=== PATIENT | male | born 1945 | race Caucasian/White ===

== ENCOUNTER 2018-02-17 21:20 | Inpatient (IN) ==
[2018-02-17] MEDS ORDERED: Nitroglycerin 1 INCH/GM PACKET TP ONE (21:28)
--- NOTE | 2018-02-17 22:28 | Emergency Department Note ---
Disposition Clinical Impression: NSTEMI (non-ST elevated myocardial infarction) Atrial fibrillation Qualifiers: Atrial fibrillation type: chronic Qualified Code(s): I48.2 - Chronic atrial fibrillation Hypertension Qualifiers: Hypertension type: essential hypertension Qualified Code(s): I10 - Essential (primary) hypertension Disposition: Admitted As Inpatient Condition: Fair Time of Disposition: 23:02 General Adult HPI - General Chief complaint: ED General Medical Stated complaint: high BP/elev trop Time Seen by Provider: 02/17/18 21:27 Source: patient, EMS Mode of arrival: EMS Limitations: no limitations Nursing Notes Reviewed: Yes Vital Signs Reviewed: Yes - History of Present Illness HPI Narrative: 72-year-old male presenting to the emergency department via EMS from a transfer from the [facility] for elevated troponin. Patient originally just went to the urgent care as he had high blood pressure his readings he said at home were greater than 180 on the systolic but unsure diastolic. When he went there they got basic labs he did note to have high blood pressure at that time is was 187/110. They said that he ended up having a troponin that was elevated to 0.4- 3 so they said to transfer him here. Patient is not having any chest pain at this time is having no shortness of breath. He did have a stent placed approximately 1992. Has had no problems since then has been taking his medications regularly. He did not get a full dose aspirin prior to coming here. Patient currently has no pain at this time. He is on daily headaches, blurry vision, neck pain, back pain, fevers, chills, nausea, vomiting, chest pain, shortness of breath, abdominal pain, change in bowel movement, pain with urination, pain or tingling in any arms or legs or generalized weakness. Pain Scale: 0 - Related Data Home Medications Medication Instructions Recorded Confirmed RX: Acarbose [Precose] 25 mg PO TIDWM 08/08/15 09/27/15 RX: Albuterol Sulfate [Albuterol 2 puff IH QID PRN 08/08/15 09/27/15 Inhaler] RX: Benztropine [Cogentin] 1 mg PO BID 08/08/15 02/17/18 RX: Bisacodyl [Dulcolax] mg PO DAILY PRN 08/08/15 09/27/15 RX: Cetirizine HCl [Zyrtec] 10 mg PO DAILY 08/08/15 09/27/15 RX: Formoterol Fumarate [Foradil] 12 mcg IH BIDR 08/08/15 09/27/15 RX: Loxapine Succinate [Loxapine] 35 mg PO QAM 08/08/15 02/17/18 RX: Loxapine Succinate [Loxapine] 65 mg PO QPM 08/08/15 02/17/18 RX: Metoprolol [Lopressor] 100 mg PO BID 08/08/15 02/17/18 RX: Mometasone Furoate [Asmanex] 1 puff IH BID 08/08/15 09/27/15 RX: NIFEdipine [Nifedipine ER] 60 mg PO DAILY 08/08/15 09/27/15 RX: Omeprazole [PriLOSEC] 20 mg PO DAILY 08/08/15 02/17/18 RX: Paliperidone [Paliperidone ER] 9 mg PO DAILY 08/08/15 02/17/18 RX: Potassium Chloride [K-Tab ER] 10 meq PO DAILY 08/08/15 02/17/18 RX: Simvastatin [Zocor] 40 mg PO HS 08/08/15 02/17/18 RX: Valsartan [Diovan] 80 mg PO DAILY 08/08/15 09/27/15 RX: glipiZIDE [Glipizide] 2.5 mg PO BID 08/08/15 02/17/18 RX: Pentoxifylline [TRENtal] 400 mg PO TID 08/12/15 02/17/18 RX: Saxagliptin HCl [Onglyza] 2.5 mg PO DAILY 08/12/15 02/17/18 RX: Urea [Remeven] 1 appl TP DAILY 08/12/15 09/27/15 RX: Benzonatate [Tessalon] 100 mg PO QID 09/27/15 02/17/18 RX: Warfarin [Coumadin] 1 mg PO SUTUWETHFRSA 09/27/15 09/27/15 RX: Warfarin [Coumadin] 1.5 mg PO MOFR 09/27/15 09/27/15 Multivitamin [Multivitamins] 1 each PO DAILY 02/17/18 02/17/18 Allergies Allergy/AdvReac Type Severity Reaction Status Date / Time ROB Inhibitors Allergy Unconscious Verified 08/08/15 09:39 chlorpromazine Allergy unknown Verified 08/08/15 09:39 [From Thorazine] Erythromycin Base Allergy Hives Verified 08/08/15 09:39 All systems ED: reviewed and negative except as stated. Review of Systems: As Per HPI Past Medical History - Past Medical History Attestation: Yes The following information was validated with the patient. Source: patient Medical history: Reports: atrial fibrillation, COPD, CVA, diabetes, hyp erlipidemia, hypertension, myocardial infarction Surgical history: Reports: vascular surgery Psychiatric history: Reports: anxiety, depression, schizophrenia - Social History Smoking Status: Never smoker Smokeless Tobacco Status: No Alcohol use: Reports: none Drug use: Reports: none Physical Exam - General Limitations: no limitations General appearance: alert - Head Head exam: atraumatic, normocephalic, normal inspection - Eye Eye exam: Present: normal appearance, PERRL, EOMI - ENT ENT exam: normal exam, normal oropharynx, mucous membranes moist - Neck Neck exam: Present: normal inspection, full ROM, trachea midline - Chest Chest inspection: Present: normal inspection, symmetric chest wall rise - Respiratory Respiratory exam: Present: normal lung sounds bilaterally - Cardiovascular Cardiovascular exam: Present: regular rate, normal rhythm, normal heart sounds - Abdominal Exam Abdominal exam: Present: soft, Non-Tender, normal bowel sounds. Absent: tenderness, distention, guarding, rebound, rigidity - Extremities Exam Extremities exam: Present: normal inspection, full ROM. Absent: tenderness, pedal edema - Back Exam Back exam: Present: normal inspection, full ROM. Absent: tenderness, CVA tenderness (R), CVA tenderness (L) - Neurological Exam Neurological exam: Present: alert, oriented X3 - Skin Skin exam: Present: warm, dry, intact, normal color Course Course Narrative: Patient had labs done at the [facility]. We will repeat a troponin here give him a nitroglycerin patch. Also give him full dose aspirin here as well. EKG will also be done. X-rays will be uploaded into her system. Vital Signs Temperature 98.7 F 02/17/18 21:23 Pulse Rate 117 02/17/18 21:23 Respiratory Rate 18 02/17/18 21:23 Blood Pressure 200/117 02/17/18 21:23 O2 Sat by Pulse Oximetry 100 02/17/18 21:23 Temperature 98.7 F 02/17/18 21:23 Pulse Rate 126 02/17/18 22:48 Respiratory Rate 16 02/17/18 22:48 Blood Pressure 193/126 02/17/18 22:48 O2 Sat by Pulse Oximetry 99 02/17/18 22:48 Oxygen Delivery Oxygen Delivery Room Air Medical Decision Making - MDM Narrative Medical decision making narrative: Labs done at the [facility] came back with a troponin of 0.4-3 potassium 3.3 glucose 114, BUNs 23, creatinine 1.86, hemoglobin 12.2, hematocrit 36.9. All other labs were within normal limits. Chest x-ray had no acute cardiopulmonary findings. Repeat troponin here was 0.25. Patient was given full dose aspirin. He does have history of atrial fibrillation does take metoprolol He does have A. fib currently at this time patient is stable. Patient is okay with being admitted for further evaluation. Patient is still not having any chest pain at this time. I spoke with the hospitalist Dr. Thompson Who agreed to admit the patient at this time per patient is stable. Patient still has elevated high blood pressure at 190/120. Hospital is recommended giving 10 mg IV hydralazine and holding off on a nitro drip. I agree. Patient is admitted in stable condition. - Medical Records Medical records reviewed: Yes I reviewed the patient's medical records. - Lab Data Lab results reviewed: Yes I reviewed the patient's lab results. Lab Results 02/17/18 Range/Units 21:35 Troponin I 0.25 H* (< 0.04) ng/mL - Radiology Data Radiology results reviewed: Yes I reviewed the patient's radiology results. - EKG Data EKG #1 EKG attestation: Yes I reviewed and interpreted this EKG. EKG results narrative: EKG done at 2127 review by myself and the attending shows atrial fibrillation at a rate of 119, QRS 86, QTc 459. His no acute ST changes no acute T-wave changes no other signs of ischemia. No hypertrophy, heart strain, heart block. No WPW/Brugada/HOCM. EKG is unchanged when compared with old one done 08/12/15. Critical Care Time Critical Care Time: Yes Total Critical Care Time: 35 Attestation: Non stemi Attestation Statement - Attestation Attestation: Dr. Burgos note: Patient was seen in conjunction with resident Dr. Santiago Starr; please see his charting for complete documentation. I spent [id number] time with the patient and I agree with the patient's treatment and disposition. tropoin results reviewed; bp improved; no chest pain at presentation to outside facility or to our facility; vitals stable; will admit for trend sx and troponin; acute NON STEMI noted , timing onset uncertain;
[2018-02-17] MEDS ORDERED: Aspirin 81 MG TAB.CHEW PO ONE (22:33)
--- NOTE | 2018-02-17 23:33 | Internal Med History&Physical ---
<Elijah Ackerman - Last Filed: 02/18/18 05:03> Date of Encounter: 02/18/18 Time of Encounter: 01:40 Internal Medicine - H&P: HPI Chief complaint: HTN; Elevated Trop Admitted From: Intrahospital Transfer Plans for Post Hospital Care: Home History of present illness: Mr. Craig is a 72 year old male with PMHx of CAD stents in 1992, a. fib, CVA, HTN, DM, CKD stage III, and schizophrenia admitted from the emergency department for hypertensive emergency. Patient was transfered from the [place] to [facility] ED for evaluation of elevated troponin and HTN. Patient initial complaint was elevated blood pressure in the 180's systolic. Vitals confirmed BP, labs showed elevated torponin to 0.4 and patient was transferred to [facility] for further management. Patient denies CP or dyspnea at this time. According to records, patient follows with cardiology at the [facility]. Seen in October 2017 for further discussion of anticoagulation and patient was recommended to EP physician at that time for evaluation for atrial appendage procedure for prevention of clot formation. No other concerns at that time. Past Med Surg Social Fam HX - Past Medical History Medical history: atrial fibrillation, COPD, CVA, diabetes, hyperlipidemia, hypertension, myocardial infarction Additional medical history: slurred speech from previous CVA Psychiatric history: anxiety, depression, schizophrenia - Past Surgical History Surgical History: vascular surgery - Social History Smoking Status: Never smoker Smokeless Tobacco Status: No Alcohol use: none Drug use: none - Family History Father History Unknown: Yes Internal Medicine - H&P: Meds Acarbose [Precose] 25 mg PO TIDWM 08/08/15 [History] Albuterol Sulfate [Albuterol Inhaler] 2 puff IH QID PRN 08/08/15 [History] Benztropine [Cogentin] 1 mg PO BID 08/08/15 [History] Bisacodyl [Dulcolax] mg PO DAILY PRN 08/08/15 [History] Cetirizine HCl [Zyrtec] 10 mg PO DAILY 08/08/15 [History] Formoterol Fumarate [Foradil] 12 mcg IH BIDR 08/08/15 [History] Loxapine Succinate [Loxapine] 35 mg PO QAM 08/08/15 [History] Loxapine Succinate [Loxapine] 65 mg PO QPM 08/08/15 [History] Metoprolol [Lopressor] 100 mg PO BID 08/08/15 [History] Mometasone Furoate [Asmanex] 1 puff IH BID 08/08/15 [History] NIFEdipine [Nifedipine ER] 60 mg PO DAILY 08/08/15 [History] Omeprazole [PriLOSEC] 20 mg PO DAILY 08/08/15 [History] Paliperidone [Paliperidone ER] 9 mg PO DAILY 08/08/15 [History] Potassium Chloride [K-Tab ER] 10 meq PO DAILY 08/08/15 [History] Simvastatin [Zocor] 40 mg PO HS 08/08/15 [History] Valsartan [Diovan] 80 mg PO DAILY 08/08/15 [History] glipiZIDE [Glipizide] 2.5 mg PO BID 08/08/15 [History] Pentoxifylline [TRENtal] 400 mg PO TID 08/12/15 [History] Saxagliptin HCl [Onglyza] 2.5 mg PO DAILY 08/12/15 [History] Urea [Remeven] 1 appl TP DAILY 08/12/15 [History] Benzonatate [Tessalon] 100 mg PO QID 09/27/15 [History] Warfarin [Coumadin] 1 mg PO SUTUWETHFRSA 09/27/15 [History] Warfarin [Coumadin] 1.5 mg PO MOFR 09/27/15 [History] Multivitamin [Multivitamins] 1 each PO DAILY 02/17/18 [History] Allergy/AdvReac Type Severity Reaction Status Date / Time ROB Inhibitors Allergy Unconscious Verified 08/08/15 09:39 chlorpromazine Allergy unknown Verified 08/08/15 09:39 [From Thorazine] Erythromycin Base Allergy Hives Verified 08/08/15 09:39 All Systems PM: A 10-system review of systems was performed and is negative for pertinent findings except as documented above in the HPI. - Constitutional Constitutional: no fever(s) - EENT Eyes: no blurry vision, no change in vision Ears: no decreased hearing Nose, mouth and throat: as per HPI - Breasts Breasts: as per HPI - Cardiovascular Cardiovascular ROS IM: no chest pain, no diaphoresis, no dyspnea, no dyspnea on exertion, no edema, no lightheadedness, no palpitations - Respiratory Respiratory: cough, no dyspnea, no dyspnea on exertion, no wheezing, no excessive phlegm production - Gastrointestinal Gastrointestinal: no abdominal pain, no nausea - Genitourinary Genitourinary ROS male: no dysuria, no flank pain - Musculoskeletal Musculoskeletal ROS IM: no back pain, no numbness - Integumentary Integumentary IM: as per HPI - Neurological Neurological ROS: headache(s) (resolved at this time), no confusion, no dizziness, no focal weakness, no loss of vision, no memory loss, no weakness - Psychiatric Psychiatric: as per HPI - Endocrine Endocrine IM: as per HPI - Constitutional Vitals: Temp Pulse Resp BP Pulse Ox 98.7 F 123 16 189/109 100 02/17/18 21:23 02/17/18 23:17 02/17/18 23:17 02/17/18 23:17 02/17/18 23:17 General appearance: Present: A&O X 3, pleasant, no acute distress Exam: Patient alert and oriented for exam. Pleasant. Resting in bed comfortably. - Head Head exam: Present: atraumatic, normal inspection, normocephalic - Eye Eye exam: Present: conjunctival injection, EOMI, normal appearance, PERRL - ENT ENT exam: Present: mucous membranes moist, normal exam, normal oropharynx - Neck Neck exam general surgery: Present: full ROM, normal inspection - Cardiovascular Cardiovascular exam: Present: +S1, +S2, tachycardia - GI/Abdominal GI/Abdominal exam: Present: normal bowel sounds, soft. Absent: tenderness - Extremities Exam Extremities exam: Present: normal capillary refill, normal inspection. Absent: calf tenderness, pedal edema, tenderness - Back Exam Back exam: Present: full ROM, normal inspection. Absent: CVA tenderness (L), CVA tenderness (R) - Neurological Exam Neurological exam: Present: alert, CN II-XII intact, oriented X3, reflexes normal, no focal deficits, strengths equal and symetr throughout. Absent: motor sensory deficit, pronater drift, facial droop, speech deficit - Psychiatric Psychiatric exam: Present: normal affect, normal mood - Skin Skin exam: Present: dry, intact, normal color Internal Med - H&P Results - Labs CBC & Chem 7: 02/18/18 03:26 02/18/18 03:26 Labs: Cardiac Enzymes 02/17/18 Range/Units 21:35 Troponin I 0.25 H* (< 0.04) ng/mL - EKG Data -: EKG Interpreted by Myself EKG shows normal: axis, intervals, QRS complexes Rate: tachycardia - EKG Data Prior EKG available for review: yes When compared to previous EKG: there is no significant change - Assessment and plan (1) Hypertensive emergency Current Visit: Yes Status: Acute Assessment and plan: Received 10mg IV hydralazine in the ED BP improved from systolic 190-> 140s Elevated troponin trending downward KOWALSKI earlier this evening, resolved now Plan: - BP improved to 110's systolic will continue to monitor - Trending troponin and kidney function - Resume home medications in the AM (2) Elevated troponin Current Visit: Yes Status: Acute Assessment and plan: Most likely secondary to demand ischemia due to elevated BP Plan: - Echo in the AM - Trend troponins (3) Tachycardia Current Visit: Yes Status: Acute Assessment and plan: Patient on Metoprolol 100mg BID for tachycardia and HTN Hx of a. fib, not on AC due to hx of falls EKG shows sinus tachycardia 130s HR currently in 110's Plan: - 1L NS bolus - Reassess for prn medications - Resume home medications in the AM (4) Acute kidney injury superimposed on chronic kidney disease Current Visit: Yes Status: Acute Assessment and plan: Cr 1.86, unsure of patient baseline Plan: - 1L NS bolus - Reassess with AM labs (5) Paranoid schizophrenia, chronic condition Current Visit: No Status: Chronic Assessment and plan: Continue Home meds in AM (6) DVT prophylaxis Current Visit: No Status: Acute Assessment and plan: heparin 5000 units BID - Time Spent With Patient Total time spent is greater than 50% in coordination of care (as documented) at patient's floor/unit and/or counseling patient: <Kleber Hu - Last Filed: 02/18/18 07:57> Date of Encounter: 02/18/18 Internal Medicine - H&P: HPI History of present illness: Mr. Craig is a 72 year old male All Systems PM: A 10-system review of systems was performed and is negative for pertinent find ings except as documented above in the HPI. - Constitutional Vitals: Temp Pulse Resp BP Pulse Ox 97.7 F 105 20 150/101 97 02/18/18 07:28 02/18/18 07:28 02/18/18 07:28 02/18/18 07:28 02/18/18 03:01 Internal Med - H&P Results - Labs CBC & Chem 7: 02/18/18 03:26 02/18/18 03:26 Labs: Short CBC 02/18/18 Range/Units 03:26 WBC 11.2 H (4.3-11.1) K/mcL Hgb 10.6 L (12.9-16.9) g/dL Hct 31.8 L (37.5-50.1) % Plt Count 287 (140-400) K/mcL Neutrophils # 8.5 (1.6-8.9) K/mcL BMP 02/18/18 03:26 Sodium 139 Potassium 3.2 L Chloride 105 Carbon Dioxide 27 BUN 22 Creatinine 1.66 H Glucose 128 H Calcium 9.1 Cardiac Enzymes 02/17/18 02/18/18 Range/Units 21:35 03:26 Troponin I 0.25 H* 0.19 H* (< 0.04) ng/mL - Time Spent With Patient Total time spent is greater than 50% in coordination of care (as documented) at patient's floor/unit and/or counseling patient: - Attending Attestation I saw and evaluated the patient. I reviewed the residents note, performed my own physical examination and agree with findings and plan as documented in the residents note. Patient seen and examined on 02/18/18. [facility], and troponin. Denies chest pain. Blood pressure improved, troponin trending down. Will also treat for low potassium and monitor. Patient in Afib, rate in low 110-120 range. Will try fluid bolus and reevaluate. Will also obtain echocardiogram in the AM. Patient states he has right hand pain, but exam within normal limits with good strength and ROM. Will try PRN tylenol.
[2018-02-18] MEDS ORDERED: Naloxone 0.4 MG/ML INJ IVP PRN (00:11)
[2018-02-18] MEDS ORDERED: 0.9 % Sodium Chloride 1,000 ML IVC SCH ×2 (00:15→15:00)
[2018-02-18] MEDS ORDERED: Albuterol 2.5 MG/3 ML NEBULIZER IH PRN (00:21)
[2018-02-18] MEDS ORDERED: 0.9 % Sodium Chloride 1,000 ML IVC ONE (02:15)
[2018-02-18 02:17] LABS: VBG Ionized Calcium 1.21 mmol/L (1.15-1.35)
[2018-02-18 02:20] LABS: Magnesium 1.5 mg/dL (1.6-2.6); Phosphorous 2.8 mg/dL (2.7-4.5)
[2018-02-18 04:08] LABS: Basophils % 0.4 %; Eosinophils # 0.1 K/mcL (0.0-0.6); Eosinophils % 0.9 %; Hematocrit 31.8 % (37.5-50.1); Hemoglobin 10.6 g/dL (12.9-16.9); Immature Granulocytes % 0.3 % (0-4); Lymphocytes # 1.6 K/mcL (0.6-4.6); Lymphocytes % 14.5 %; Mean Corpuscular HGB Conc 33.3 g/dL (31.6-35.5); Mean Corpuscular Hemoglobin 30.3 pg (28.0-33.3); Mean Corpuscular Volume 90.9 fL (83.0-100.0); Mean Platelet Volume 10.5 fL (9.4-12.4); Monocytes # 0.9 K/mcL (0.0-1.3); Monocytes % 7.8 %; Neutrophils # 8.5 K/mcL (1.6-8.9); Platelet Count 287 K/mcL (140-400); Red Cell Distribution Width 12.5 % (11.5-14.5); Segmented Neutrophils % 76.1 %
[2018-02-18 04:11] LABS: VBG Ionized Calcium 1.03 mmol/L (1.15-1.35)
[2018-02-18 04:19] LABS: Calcium 9.1 mg/dL (8.6-10.3); Potassium 3.2 mEq/L (3.5-5.1)
[2018-02-18] MEDS: *HR* Heparin 5,000 UNIT/ML VIAL SQ SCH ×2 (05:17→18:01)
[2018-02-18] MEDS ORDERED: Acetaminophen 325 MG TABLET PO PRN (05:19)
[2018-02-18] MEDS: Metoprolol 100 MG TABLET PO SCH ×2 (07:49→19:42)
[2018-02-18] MEDS: *HR* GlipiZIDE 5 MG TABLET PO SCH ×2 (07:49→15:50)
[2018-02-18] MEDS: LOXAPINE PO SCH (08:00)
[2018-02-18] MEDS: Saxagliptin Hcl [Onglyza] 2.5 MG PO SCH (08:00)
[2018-02-18] MEDS: amLODIPine 5 MG TABLET PO SCH (08:47)
--- NOTE | 2018-02-18 09:28 | Internal Med Progress Note ---
Hospitalist Progress Note - Encounter Date of Encounter: 02/18/18 Time of Encounter: 08:00 - Exam Vitals: Temp Pulse Resp BP Pulse Ox 97.7 F 83 18 120/78 98 02/18/18 07:28 02/18/18 09:15 02/18/18 09:15 02/18/18 09:15 02/18/18 09:15 Exam: Gen - Awake, alert, oriented x 3, no acute distress HEENT - NCAT, PERRLA, EOMI, hearing grossly intact, oropharynx benign CV - RRR, normal S1 and S2, no M/R/G, no BLE edema Resp - Normal WOB, CTAB, no W/R/R GI - Soft, NT/ND, no masses, normal bowel sounds, Skin - Warm, dry, no rashes/lesions/ulcers Psych - flat affect - Assessment and Plan (1) Hypertensive urgency Current Visit: Yes Status: Acute Assessment and Plan: Patient comes in with hypertesive urgency and elevated tropionins BP controlled on amlopdine and metoprolol (2) Acute kidney injury superimposed on chronic kidney disease Current Visit: Yes Status: Acute Assessment and Plan: Continue IV fluids. Monitor creatinine (3) HTN (hypertension) Current Visit: Yes Status: Chronic Assessment and Plan: On amlodipine and metoprolol (4) Paranoid schizophrenia, chronic condition Current Visit: No Status: Chronic Assessment and Plan: Continue antipsychotics (5) Atrial fibrillation Current Visit: Yes Status: Chronic Assessment and Plan: Rate controlled. continue metoprolol. Not on anticoagulation due to recurrent falls (6) Elevated troponin Current Visit: Yes Status: Acute Assessment and Plan: Likely secondary to demand ischemia. 2d echo came back WNL. Cardiology recommend outpatient follow up with [employer] DVT Prophylaxis: Heparin sc - Time Spent with Patient Total time spent is greater than 50% in coordination of care (as documented) at patient's floor/unit and/or counseling patient: Internal Medicine: Result - Labs CBC & Chem 7: 02/18/18 03:26 02/18/18 10:18 Labs: Short CBC 02/18/18 Range/Units 03:26 WBC 11.2 H (4.3-11.1) K/mcL Hgb 10.6 L (12.9-16.9) g/dL Hct 31.8 L (37.5-50.1) % Plt Count 287 (140-400) K/mcL Neutrophils # 8.5 (1.6-8.9) K/mcL BMP 02/18/18 03:26 Sodium 139 Potassium 3.2 L Chloride 105 Carbon Dioxide 27 BUN 22 Creatinine 1.66 H Glucose 128 H Calcium 9.1 Cardiac Enzymes 02/17/18 02/18/18 Range/Units 21:35 03:26 Troponin I 0.25 H* 0.19 H* (< 0.04) ng/mL Consult Discharge Plan - Plan [facility]errals: [facility] [Primary Care Provider] - (3) HTN (hypertension) Qualifiers: Hypertension type: essential hypertension Qualified Code(s): I10 - Essential (primary) hypertension (5) Atrial fibrillation Qualifiers: Atrial fibrillation type: chronic Qualified Code(s): I48.2 - Chronic atrial fibrillation
[2018-02-18 10:31] LABS: VBG Ionized Calcium 1.24 mmol/L (1.15-1.35)
[2018-02-18 12:01] LABS: Calcium 9.1 mg/dL (8.6-10.3); Magnesium 2.1 mg/dL (1.6-2.6); Phosphorous 2.4 mg/dL (2.7-4.5); Potassium 4.1 mEq/L (3.5-5.1)
--- NOTE | 2018-02-18 13:02 | Electrocardiograph Report ---
[place] [id number] Test Date: 2018-02-17 Pat Name: Gama Craig Department: [id number] Room: 2N13 Gender: M Manager [address]: : 1945 Requested By: Enrique Thompson Order Number: [id number] Reading MD: Mehdi Jones Measurements Intervals [place] Rate: 119 P: SC: QRS: 82 QRSD: 86 T: 249 QT: 326 QTc: 459 Interpretive Statements Probably sinus tachycardia Artifacts Nonspecific repol abnormality, diffuse leads Electronically Signed On 02-18-2018 13:00:31 EST by Mehdi Jones
[2018-02-18] MEDS: Potassium Chloride Elixir 20 MEQ/15 ML UDC PO SCH ×2 (13:25→13:26)
--- NOTE | 2018-02-18 13:45 | Cardiology Consult Note ---
Addendum entered and electronically signed by Rose Khan DO 02/18/18 15:07: Correction to Addendum: Patient reviewed with Stallion Keeper and not MANAGER FILM. Original Note: <Omega Dawson - Last Filed: 02/18/18 14:07> Date of Encounter: 02/18/18 Time of Encounter: 13:40 Assessment and Plan (1) Elevated troponin Current Visit: Yes Status: Acute 72 y/o male presents from [place] for elevated troponin and hypertensive emergency troponin 0.4>0.25>0.19 in setting of YSABEL EKG irregularly irregular with rate of [address]-elevation or depression, non-specific ST-T wave changes Echo completed today: LVEF 55-60% normal LV chamber size, wall thickness, and systolic function, mild LV diastolic dysfunction, normal RV structure and function, no evidence of pulmonary hypertension patient denies chest pain previous history of NH in 1992 plan: patient had elevated troponin (now trending now) in the setting of profound hypertension, YSABEL. ECG, echo are wnl. Patient has not had chest pain. Would recommend better blood pressure managment at this point. Currently patient is on amlodpine inpatient with BP 120/80. Patient may follow up outpatient with his PCP/Jail Officer for further ischemic workup including stress test if appropriate. (2) YSABEL (acute kidney injury) Current Visit: Yes Status: Acute likely 2nd to hypertension patient on IVF management as per primary (3) Paroxysmal atrial fibrillation Current Visit: Yes Status: Acute controlled continue metoprolol patient is not on anticoagulation due to hx of recurrent falls (4) Hypertensive emergency Current Visit: Yes Status: Resolved resolved unclear if patient is compliant with his medication regimen he is on clonidine which if missed can cause rebound hypertension currently BP controlled with amlodipine. (5) Diabetes mellitus Current Visit: Yes Status: Chronic controlled as per primary Qualifiers: Diabetes mellitus type: type 2 Diabetes mellitus long term care phlebotomist insulin use: with fdc use Diabetes mellitus complication status: with circulatory complication Diabetes mellitus complication detail: with peripheral angiopathy without gangrene Qualified Code(s): E11.51 - Type 2 diabetes mellitus with diabetic peripheral angiopathy without gangrene; Z79.4 - rat exterminator (current) use of insulin Discussion w patient/family: The assessment and plan as outlined above was discussed with the patient and/or family members who expressed understanding and agreement. All questions were ans wered. Thank you for involving us in the care of your patient. Please call with any questions. History of Present Illness Consult date: 02/18/18 Consult reason: elevated troponin Chief complaint: elevated blood pressure History of present illness: Mr. Craig is a 72 year old male with hx of atrial fibrillation, COPD, CVA, diabetes, hyperlipidemia, hypertension, myocardial infarction presents from [facility] after being found to be in hypertensive emergency with elevated troponin of 0.4 as well as YSABEL. Patient is a resident at the [place] facility for the last 5 months for rehabilitation. He states that for the last 5 days. Had elevated blood pressure in the systolics 180s. Thus he went to the urgent care. At this time patient did not have headache, blurry vision shortness of breath, chest pain, abdominal pain, nausea, vomiting, diarrhea, changes in urine color, dysuria. He reports lightheadedness. Patient was transferred from the [place] to [facility]. Patient has a history of NH in 1992 and apparently had a left heart catheterization with PCI. We do not have records for this. Past Med Surg Social Fam HX - Past Medical History Medical history: atrial fibrillation, COPD, CVA, diabetes, hyperlipidemia, hypertension, myocardial infarction Additional medical history: slurred speech from previous CVA Psychiatric history: anxiety, depression, schizophrenia - Past Surgical History Surgical History: vascular surgery - Social History Smoking Status: Never smoker Smokeless Tobacco Status: No Alcohol use: none Drug use: none - Family History Father History Unknown: Yes Medications and Allergies Benzonatate 100 mg PO QID PRN 02/18/18 [History] Benztropine [Cogentin] 1 mg PO BID 02/18/18 [History] Calcium Carbonate 650 mg PO DAILY 02/18/18 [History] Cholecalciferol (Vitamin D3) [Vitamin D3] 1,000 unit PO DAILY 02/18/18 [History] Loxapine Succinate [Loxapine] 10 mg PO QAM 02/18/18 [History] Loxapine Succinate [Loxapine] 15 mg PO HS 02/18/18 [History] Loxapine Succinate [Loxapine] 25 mg PO QAM 02/18/18 [History] Loxapine Succinate [Loxapine] 50 mg PO HS 02/18/18 [History] Metoprolol Tartrate 100 mg PO BID 02/18/18 [History] Multivitamin [One-Daily Multi-Vitamin] 1 tab PO DAILY 02/18/18 [History] Omeprazole [PriLOSEC] 20 mg PO DAILY 02/18/18 [History] Paliperidone [Paliperidone ER] 9 mg PO DAILY 02/18/18 [History] Pentoxifylline 400 mg PO TID 02/18/18 [History] Potassium Chloride [K-Tab ER] 10 meq PO MOWEFR 02/18/18 [History] Potassium Chloride [K-Tab ER] 20 meq PO SUTUTHSA 02/18/18 [History] Saxagliptin HCl [Onglyza] 2.5 mg PO DAILY 02/18/18 [History] Sennosides/Docusate Sodium [Eq Stool Softener-Stim Lax Tab] 2 tab PO BID PRN 02/18/18 [History] Simvastatin 40 mg PO HS 02/18/18 [History] cloNIDine HCl [Clonidine HCl] 0.2 mg PO DAILY 02/18/18 [History] glipiZIDE [Glucotrol] 2.5 mg PO BID 02/18/18 [History] Allergy/AdvReac Type Severity Reaction Status Date / Time ROB Inhibitors Allergy Unconscious Verified 02/18/18 10:48 chlorpromazine Allergy unknown Verified 02/18/18 10:48 [From Thorazine] Erythromycin Base Allergy Hives Verified 02/18/18 10:48 All Systems Review: The remainder of the systems were reviewed and are negative Review of Systems: Constitutional: Denies fever, chills HEENT: Denies headache, trauma, blurry vision, eye discharge, ear pain, ear discharge neck pain, sore throat, rhinorrhea Heart: Denies chest pain palpitations, LE edema. Reports lightheadedness Lungs: Denies shortness of breath cough Abdomen: Denies abdominal pain nausea vomiting diarrhea MSK: Denies back pain, falls, joint pain Kidney: Denies dysuria, hematuria Skin: Denies rash, ulcers Neuro: Denies numbness and tingling Psych: denies axniety, depression Physical Examination Vital Signs, Last 4 Hours Temp Pulse Resp BP Pulse Ox 02/18/18 12:26 87 02/18/18 11:58 97.8 F 80 16 127/81 99 General: Conversant, No Apparent Distress HEENT: Atraumatic, Normocephaly, Mucus Membranes Moist Neck: No JVD, Normal carotid pulses Cardiac: Reg Rate and Rhythm, Normal S1 and S2, No Murmur Lungs: Normal Breath Sounds, No Wheeze, Rales, Rhonchi Neuro: Alert and responsive, No focal deficits noted, Other (Slurred speech, chronic) Abdomen: Soft, Non-Tender Skin: No rashes noted on visualized skin Musculoskeletal: No Chest Wall Tenderness, Other Extremities: No Clubbing, No Cyanosis, No Edema, Normal Pulses Results 02/18/18 03:26 02/18/18 10:18 Lab Results 02/17/18 02/18/18 02/18/18 21:35 01:51 03:26 WBC Hgb Hct Plt Count Sodium Potassium Chloride Carbon Dioxide BUN Creatinine Glucose Calcium Magnesium 1.5 L Troponin I 0.25 H* 0.19 H* 02/18/18 02/18/18 02/18/18 03:26 03:26 10:18 WBC 11.2 H Hgb 10.6 L Hct 31.8 L Plt Count 287 Sodium 139 140 Potassium 3.2 L 4.1 D Chloride 105 106 Carbon Dioxide 27 27 BUN 22 22 Creatinine 1.66 H 1.70 H Glucose 128 H 210 H Calcium 9.1 9.1 Magnesium 2.1 Troponin I Consult Discharge Plan - Plan Referrals: [place],PCP [Primary Care Provider] - <Rose Khan - Last Filed: 02/18/18 15:05> Date of Encounter: 02/18/18 - Attending Attestation I examined this patient and my medical decision-making was reviewed with the MANAGER FILM. I agree with the documented findings, disposition and treatment plan as described. Mr. Craig transferred from [place] for elevated troponin in setting of ARF and hypertensive urgency. Patient denies recent cardiac symptoms. Specifically denies chest pain. Resting comfortably at the bedside, NAD. Vital signs reviewed - BP's have improved with medical therapy. Labs reviewed - decrease in Hgb 12 to 10, troponin elevation mild, renal d ysfunction Echo reviewed - normal LVEF ECG reviewed - nonspecific ST findings, no acute ischemic changes Impression: 1. Elevated troponin - Represents demand ischemia in setting of ARF and hypertensive urgency. Patient asymptomatic. No ECG changes. Normal LVEF by echo. Recommend optimizing BP control and scheduling for outpatient follow up. Continue aspirin, statin. 2. PAF - rate controlled. Not on AC due to recurrent falls. Continue aspirin. Will sign off. Please call with questions. Assessment and Plan Discussion w patient/family: The assessment and plan as outlined above was discussed with the patient and/or family members who expressed understanding and agreement. All questions were answered. Thank you for involving us in the care of your patient. Please call with any questions. History of Present Illness History of present illness: Mr. Craig is a 72 year old male All Systems Review: The remainder of the systems were reviewed and are negative Physical Examination Vital Signs, Last 4 Hours Temp Pulse Resp BP Pulse Ox 02/18/18 12:26 87 02/18/18 11:58 97.8 F 80 16 127/81 99 Results 02/18/18 03:26 02/18/18 10:18 Lab Results 02/17/18 02/18/18 02/18/18 21:35 01:51 03:26 WBC Hgb Hct Plt Count Sodium Potassium Chloride Carbon Dioxide BUN Creatinine Glucose Calcium Magnesium 1.5 L Troponin I 0.25 H* 0.19 H* 02/18/18 02/18/18 02/18/18 03:26 03:26 10:18 WBC 11.2 H Hgb 10.6 L Hct 31.8 L Plt Count 287 Sodium 139 140 Potassium 3.2 L 4.1 D Chloride 105 106 Carbon Dioxide 27 27 BUN 22 22 Creatinine 1.66 H 1.70 H Glucose 128 H 210 H Calcium 9.1 9.1 Magnesium 2.1 Troponin I
[2018-02-18] MEDS ORDERED: LOXAPINE PO SCH (18:00)
[2018-02-19 04:10] LABS: Calcium 8.6 mg/dL (8.6-10.3); Magnesium 1.7 mg/dL (1.6-2.6); Phosphorous 3.1 mg/dL (2.7-4.5); Potassium 3.8 mEq/L (3.5-5.1)
[2018-02-19] MEDS: *HR* Heparin 5,000 UNIT/ML VIAL SQ SCH (05:54)
[2018-02-19 07:27] VITALS: BP 142/93
--- NOTE | 2018-02-19 08:00 | Discharge Summary ---
Orders not resulted at time of discharge: Pending orders 02/19/18 12:00 Magnesium Routine Potassium Timed Date of Encounter: 02/19/18 Time of Encounter: 07:50 - Discharge Diagnosis (1) Hypertensive urgency Priority: Primary Status: Acute Assessment and Plan: 72 year old male with PMHx of CAD stents in 1992, a. fib, CVA, HTN, DM, CKD stage III, and schizophrenia admitted from the emergency department for hypertensive emergency. Patient was transfered from the [place] to [facility] for evaluation of elevated troponin and HTN. Patient initial complaint was elevated blood pressure in the 180's systolic. Vitals confirmed BP, labs showed elevated torponin to 0.4 and patient was transferred to [facility] for further management. Patient denies CP or dyspnea at this time. According to records, patient follows with cardiology at the [place]. Patient was assessed with hypertesive urgency and elevated troponins. He was noted to be on once daily clonidine at home and metoprolol. He was given IV hydralazine and his BP has been controlled with amlodipine and metoprolol. Clonidine was discontinued on discharge. For his elevated troponins, due to risk factors for CAD. A 2D echo was done which came back WNL. He was seen by cardiology and it was determined he can follow up outpatient with his knock out hand for a possible stress test. He was discharged in a stable condition (2) Acute kidney injury superimposed on chronic kidney disease Priority: Primary Status: Acute (3) HTN (hypertension) Priority: Primary Status: Chronic Qualifiers: Hypertension type: essential hypertension Qualified Code(s): I10 - Essential (primary) hypertension (4) Paranoid schizophrenia, chronic condition Priority: Primary Status: Chronic (5) Atrial fibrillation Priority: Primary Status: Chronic Qualifiers: Atrial fibrillation type: chronic Qualified Code(s): I48.2 - Chronic atrial fibrillation (6) Elevated troponin Priority: Primary Status: Acute Hospital course: Mr. Craig is a 72 year old male - Time Spent with Patient Total time spent providing and/or coordinating discharge services: - Discharge Medications Prescriptions: amLODIPine [Norvasc] 10 mg PO DAILY 30 Days #30 tablet Metoprolol [Lopressor] 100 mg PO BID 30 Days #60 tablet Home Medications: Benzonatate 100 mg PO QID PRN 02/18/18 [History] Benztropine [Cogentin] 1 mg PO BID 02/18/18 [History] Calcium Carbonate 650 mg PO DAILY 02/18/18 [History] Cholecalciferol (Vitamin D3) [Vitamin D3] 1,000 unit PO DAILY 02/18/18 [History] Loxapine Succinate [Loxapine] 10 mg PO QAM 02/18/18 [History] Loxapine Succinate [Loxapine] 15 mg PO HS 02/18/18 [History] Loxapine Succinate [Loxapine] 25 mg PO QAM 02/18/18 [History] Loxapine Succinate [Loxapine] 50 mg PO HS 02/18/18 [History] Metoprolol Tartrate 100 mg PO BID 02/18/18 [History] Multivitamin [One-Daily Multi-Vitamin] 1 tab PO DAILY 02/18/18 [History] Omeprazole [PriLOSEC] 20 mg PO DAILY 02/18/18 [History] Paliperidone [Paliperidone ER] 9 mg PO DAILY 02/18/18 [History] Pentoxifylline 400 mg PO TID 02/18/18 [History] Potassium Chloride [K-Tab ER] 10 meq PO MOWEFR 02/18/18 [History] Potassium Chloride [K-Tab ER] 20 meq PO SUTUTHSA 02/18/18 [History] Saxagliptin HCl [Onglyza] 2.5 mg PO DAILY 02/18/18 [History] Sennosides/Docusate Sodium [Eq Stool Softener-Stim Lax Tab] 2 tab PO BID PRN 02/18/18 [History] Simvastatin 40 mg PO HS 02/18/18 [History] glipiZIDE [Glucotrol] 2.5 mg PO BID 02/18/18 [History] Metoprolol [Lopressor] 100 mg PO BID 30 Days #60 tablet 02/19/18 [Rx] amLODIPine [Norvasc] 10 mg PO DAILY 30 Days #30 tablet 02/19/18 [Rx] Allergies/Adverse Reactions: Allergy/AdvReac Type Severity Reaction Status Date / Time ROB Inhibitors Allergy Unconscious Verified 02/18/18 10:48 chlorpromazine Allergy unknown Verified 02/18/18 10:48 [From Thorazine] Erythromycin Base Allergy Hives Verified 02/18/18 10:48 Date of admission: 02/18/18 13:46 Primary care physician: [facility] Consults: 02/18/18 08:24 Consult to Cardiology [CONS] Routine Comment: Consulting Provider: Cardiology Rosalina Reason for Consult: elevated troponins with hypertensive emergency Call Completed: No - Constitutional Vitals: Temp Pulse Resp BP Pulse Ox 98.4 F 94 18 142/93 96 02/19/18 07:24 02/19/18 07:24 02/19/18 07:24 02/19/18 07:24 02/19/18 07:24 General appearance: Present: A&O X 3, pleasant, no acute distress Exam: Gen - Awake, alert, oriented x 3, no acute distress HEENT - NCAT, PERRLA, EOMI, hearing grossly intact, oropharynx benign CV - RRR, normal S1 and S2, no M/R/G, no BLE edema Resp - Normal WOB, CTAB, no W/R/R GI - Soft, NT/ND, no masses, normal bowel sounds, Skin - Warm, dry, no rashes/lesions/ulcers Psych - flat affect - Patient Status Disposition: Home, Self-Care Condition: Fair - Discharge Instructions Instructions: Metoprolol (By mouth), Amlodipine (By mouth), Chronic Hypertension (DC) Follow Up [facility]: [facility] [Primary Care Provider] - 02/26/18 2:00 pm
[2018-02-19] MEDS: amLODIPine 5 MG TABLET PO SCH (08:19)
[2018-02-19] MEDS: *HR* GlipiZIDE 5 MG TABLET PO SCH (08:19)
[2018-02-19] MEDS: Metoprolol 100 MG TABLET PO SCH (08:19)
[2018-02-19] MEDS: LOXAPINE PO SCH (08:22)
[2018-02-19] MEDS: Saxagliptin Hcl [Onglyza] 2.5 MG PO SCH (08:22)
[2018-02-19] MEDS ORDERED: Aspirin 81 MG TAB.CHEW PO SCH (09:00)
== END 2018-02-19 12:35 | disposition home or self-care (01) | DRG 305 ==
LOC: EMEROOARM 21:20 → INTOOBSV 23:11 → 2NNU 23:11
PROVIDERS: ADMIT Pediatrics; ATTEND Pediatrics

== ENCOUNTER 2018-06-02 17:52 | Inpatient (IN) ==
[2018-06-02] MEDS ORDERED: 0.9 % Sodium Chloride 1,000 ML ONE ×2 (17:55→18:54)
[2018-06-02] MEDS ORDERED: *HR* FentaNYL (PF) 100 MCG/2 ML VIAL ONE (18:00)
[2018-06-02] MEDS ORDERED: 0.9 % Sodium Chloride 1,000 ML IVC ONE ×2 (18:05→18:56)
--- NOTE | 2018-06-02 18:11 | Emergency Department Note ---
Disposition Clinical Impression: Choking due to food in larynx Qualifiers: Encounter type: initial encounter Qualified Code(s): T17.320A - Food in larynx causing asphyxiation, initial encounter Aspiration pneumonia Qualifiers: Aspiration pneumonia type: due to regurgitated food Laterality: left Lung loca tion: unspecified part of lung Qualified Code(s): J69.0 - Pneumonitis due to inhalation of food and vomit Acute respiratory failure Qualifiers: Respiratory failure complication: hypoxia Qualified Code(s): J96.01 - Acute respiratory failure with hypoxia Disposition: Admitted As Inpatient Condition: Serious Time of Disposition: 21:00 General Adult HPI - General Chief complaint: ED Altered Mental Status Stated complaint: unresponsive Time Seen by Provider: 06/02/18 18:03 Source: EMS Mode of arrival: EMS Limitations: altered mental status Nursing Notes Reviewed: Yes Vital Signs Reviewed: Yes - History of Present Illness HPI Narrative: Male patient brought in by EMS. The report is very minimal. They are bagging the patient. They state that he was found unresponsive at home possibly choking. They attempted to perform the Heimlich with no relief. Possible CPR provided on scene. They have retrieved some food product from his mouth. Unknown any other situation. Pain Scale: 0 - Related Data Home Medications Medication Instructions Recorded Confirmed Benzonatate [Tessalon] 100 mg PO QID PRN 06/02/18 06/02/18 Benztropine [Cogentin] 1 mg PO BID 06/02/18 06/02/18 Calcium Carbonate 650 mg PO DAILY 06/02/18 06/02/18 Cholecalciferol (D-3) [Vitamin D] 2,000 unit PO DAILY 06/02/18 06/02/18 Loxapine Succinate [Loxapine] 10 mg PO QAM 06/02/18 06/02/18 Loxapine Succinate [Loxapine] 15 mg PO HS 06/02/18 06/02/18 Loxapine Succinate [Loxapine] 25 mg PO QAM 06/02/18 06/02/18 Loxapine Succinate [Loxapine] 50 tab PO HS 06/02/18 06/02/18 Metoprolol [Lopressor] 100 mg PO BID 06/02/18 06/02/18 Multivitamin [Daily Multiple 1 each PO DAILY 06/02/18 06/02/18 Vitamin] Omeprazole [PriLOSEC] 20 mg PO DAILY 06/02/18 06/02/18 Paliperidone [Paliperidone ER] 9 mg PO QAM 06/02/18 06/02/18 Pentoxifylline [TRENtal] 400 mg PO TIDWM 06/02/18 06/02/18 Potassium Chloride [Klor-Con 10] 10 meq PO MOWEFR 06/02/18 06/02/18 Potassium Chloride [Klor-Con 10] 20 meq PO SUTUTHSA 06/02/18 06/02/18 Saxagliptin HCl [Onglyza] 2.5 mg PO DAILY 06/02/18 06/02/18 Sennosides/Docusate Sodium 2 each PO BID PRN 06/02/18 06/02/18 [Senna-Docusate Sodium Tablet] Simvastatin [Zocor] 40 mg PO HS 06/02/18 06/02/18 glipiZIDE [Glucotrol] 2.5 mg PO BIDWM 06/02/18 06/02/18 Allergies Allergy/AdvReac Type Severity Reaction Status Date / Time No Known Allergies Allergy Verified 06/02/18 18:41 Limitations: ROS unobtainable due to patients medical condition Past Medical History - Past Medical History Medical history: Reports: no medical history - Social History Smoking Status: Unknown if ever smoked Alcohol use: Reports: unknown Drug use: Reports: unknown Physical Exam - General Limitations: no limitations General appearance: alert, in distress - Head Head exam: atraumatic, normocephalic, normal inspection - Eye Eye exam: Present: normal appearance, PERRL, EOMI - ENT ENT exam: normal exam, mucous membranes moist, other (Food bolus occluding trachea. Removed with ring forceps. Patient intubated after. Tube went h owever there was some mild resistance.) - Neck Neck exam: Present: normal inspection, full ROM, trachea midline - Chest Chest inspection: Present: normal inspection, symmetric chest wall rise, other (No ecchymosis noted.) - Respiratory Respiratory exam: Present: other (Respirations assisted with an AVM.) - Cardiovascular Cardiovascular exam: Present: regular rate, normal rhythm, normal heart sounds - Abdominal Exam Abdominal exam: Present: soft. Absent: distention - Extremities Exam Extremities exam: Present: normal inspection, full ROM, normal capillary refill. Absent: tenderness, pedal edema - Back Exam Back exam: Present: normal inspection - Neurological Exam Neurological exam: Present: other (No response.) - Expanded Neurological Exam Coma Scale Eye Opening: None Coma Scale Motor Response: None Coma Scale Verbal Response: None Coma Scale Total: 3 - Skin Skin exam: Present: warm, dry, intact. Absent: rash Course Course Narrative: Patient assisted with ventilation. Oxygen saturation stayed in the 80s. We did place 2 IVs. Patient was given sedation. On first look with the laryngoscope patient had a large amount of food bolus in his trachea. This was successfully removed with ring forceps. An ET tube was then passed through his vocal cords. There was a mild amount of resistance met as well as lacing this. Patient was assisted with ventilations after this and had lung sounds are clear bilaterally. Had good chest reservoir. Good color change. She was placed on end-tidal CO2 and found to have a total CO2 of 45. Chest x-ray was obtained and showed good positioning of the ET tube as well as the OG tube. We did get a CT of patient's chest and basic lab workup. We have placed the patient on propofol. We will be admitting the patient to the ICU. No signs of trauma to the patient's body. We did get a head CT as well. - Reevaluation(s) Reevaluation #1: I did speak with the patient's nephew who was unaware that he has power of real estate associate attorney. His name is Wally ugarte. His phone number is [phone]. He states that we can provide the information [facility]. The patient is currently a full code. Patient does have what appears to be aspiration pneumonia on his CT. We did provide him with broad-spectrum antibiotics and a 30/kg fluid bolus. Patient has a lactic acidosis. As well as a leukocytosis. We will keep the patient sedated and placed him in ICU tonight. - Consultations Consultation #1: I spoke with Dr. Gong. He was made aware the patient's condition. He states that he will be able to run the patient in the morning. Time: 18:19 Consultation #2: Dr. Schroeder accepted patient in stable condition Time: 20:03 Vital Signs Temperature 0 F L 06/02/18 17:56 Pulse Rate 135 06/02/18 17:56 Respiratory Rate 4 06/02/18 17:56 Blood Pressure 190/121 06/02/18 17:56 O2 Sat by Pulse Oximetry 93 06/02/18 17:56 Temperature 95.6 F L 06/02/18 18:23 Pulse Rate 92 06/02/18 20:16 Respiratory Rate 16 06/02/18 20:16 Blood Pressure 161/93 06/02/18 20:16 O2 Sat by Pulse Oximetry 99 06/02/18 20:16 Oxygen Delivery Oxygen Delivery Ventilator Medical Decision Making - Medical Records Medical records reviewed: Yes I reviewed the patient's medical records. - Lab Data Lab results reviewed: Yes I reviewed the patient's lab results. Result diagrams: 06/02/18 21:35 06/02/18 18:05 Lab Results 06/02/18 06/02/18 06/02/18 Range/Units 17:55 18:05 18:05 WBC 17.6 H (4.3-11.1) K/mcL RBC 3.88 L (4.19-5.50) M/mcL Hgb 11.8 L (12.9-16.9) g/dL Hct 34.5 L (37.5-50.1) % MCV 88.9 (83.0-100.0) fL MCH 30.4 (28.0-33.3) pg MCHC 34.2 (31.6-35.5) g/dL RDW 12.9 (11.5-14.5) % Plt Count 323 (140-400) K/mcL MPV 10.0 (9.4-12.4) fL Immature Gran % 2.1 (0-4) % Seg Neutrophils % 69.9 % Lymphocytes % 20.6 % Monocytes % 5.7 % Eosinophils % 1.2 % Basophils % 0.5 % Neutrophils # 12.3 H (1.6-8.9) K/mcL Lymphocytes # 3.6 (0.6-4.6) K/mcL Monocytes # 1.0 (0.0-1.3) K/mcL Eosinophils # 0.2 (0.0-0.6) K/mcL Basophils # 0.1 (0.0-0.2) K/mcL PT 13.2 H (9.4-12.1) Seconds INR 1.2 APTT 27.9 (26.0-36.0) Seconds Sample Site ABG pH (7.32-7.45) pH Units ABG pCO2 (35-45) mmHg ABG pO2 (85-104) mmHg ABG HCO3 (21-27) mEq/L ABG Total CO2 (20-26) mEq/L ABG O2 Saturation (95-98) % ABG Base Excess (-2 to 3) mEq/L Respiration Rate O2 Delivery Device Blood Gas Modality Inspired O2 (1-15=lpm [id number]=%) Tidal Volume cc PEEP cm H2O Sodium (136-145) mEq/L Potassium (3.5-5.1) mEq/L Chloride (98-107) mEq/L Carbon Dioxide (23-29) mEq/L BUN (8-23) mg/dL Creatinine (0.70-1.30) mg/dL Est GFR ( Amer) (> 60) Est GFR (Non-Af Amer) (> 60) BUN/Creatinine Ratio (6-26) Glucose (70-105) mg/dL POC Glucose 345 H (70-99) mg/dL Calculated Osmolality (280-300) Lactic Acid (0.5-2.2) mmol/L Calcium (8.6-10.3) mg/dL Phosphorus (2.7-4.5) mg/dL Magnesium (1.6-2.6) mg/dL Total Bilirubin (0.3-1.0) mg/dL Direct Bilirubin (0.0-0.2) mg/dL Indirect Bilirubin (0.0-1.2) mg/dL AST (13-39) Units/L ALT (7-52) Units/L Alkaline Phosphatase (34-104) Units/L Troponin I (< 0.04) ng/mL Serum Total Protein (6.4-8.9) g/dL Albumin (3.5-5.7) g/dL Globulin (2.4-3.5) g/dL Albumin/Globulin Ratio (1.1-2.2) Urine Color (Yellow) Urine Clarity (Clear) Urine pH (5.0-8.0) pH Units Ur Specific [place] (1.010-1.025) Urine Protein (Neg-Trace) mg/dL Urine Glucose (UA) (Normal) mg/dL Urine Ketones (Negative) mg/dL Urine Blood (Negative) Urine Nitrite (Negative) Urine Bilirubin (Negative) Urine Urobilinogen (Normal) mg/dL Ur Leukocyte Esterase (Negative) Urine Microscopic RBC (0-3) per hpf Urine Microscopic WBC (0-3) per hpf Ur Squamous Epith Cells (None-Few) per lpf Urine Bacteria (None-Few) per hpf Hyaline Casts (None-Few) per lpf Ur Culture Indicated? (NO) 06/02/18 06/02/18 06/02/18 Range/Units 18:05 18:24 18:26 WBC (4.3-11.1) K/mcL RBC (4.19-5.50) M/mcL Hgb (12.9-16.9) g/dL Hct (37.5-50.1) % MCV (83.0-100.0) fL MCH (28.0-33.3) pg MCHC (31.6-35.5) g/dL RDW (11.5-14.5) % Plt Count (140-400) K/mcL MPV (9.4-12.4) fL Immature Gran % (0-4) % Seg Neutrophils % % Lymphocytes % % Monocytes % % Eosinophils % % Basophils % % Neutrophils # (1.6-8.9) K/mcL Lymphocytes # (0.6-4.6) K/mcL Monocytes # (0.0-1.3) K/mcL Eosinophils # (0.0-0.6) K/mcL Basophils # (0.0-0.2) K/mcL PT (9.4-12.1) Seconds INR APTT (26.0-36.0) Seconds Sample Site R Radial ABG pH 7.21 L (7.32-7.45) pH Units ABG pCO2 65 H (35-45) mmHg ABG pO2 128 H (85-104) mmHg ABG HCO3 26 (21-27) mEq/L ABG Total CO2 28 H (20-26) mEq/L ABG O2 Saturation 98 (95-98) % ABG Base Excess -3 L (-2 to 3) mEq/L Respiration Rate 12 O2 Delivery Device Adult Vent Blood Gas Modality VC Inspired O2 100.0 (1-15=lpm ve06-170=%) Tidal Volume 450 cc PEEP 5 cm H2O Sodium 137 (136-145) mEq/L Potassium 2.8 L (3.5-5.1) mEq/L Chloride 102 (98-107) mEq/L Carbon Dioxide 23 (23-29) mEq/L BUN 17 (8-23) mg/dL Creatinine 1.56 H (0.70-1.30) mg/dL Est GFR ( Amer) 53 L (> 60) Est GFR (Non-Af Amer) 44 L (> 60) BUN/Creatinine Ratio 11 (6-26) Glucose 326 H (70-105) mg/dL POC Glucose (70-99) mg/dL Calculated Osmolality 298 (280-300) Lactic Acid 5.0 H* (0.5-2.2) mmol/L Calcium 8.0 L (8.6-10.3) mg/dL Phosphorus 4.0 (2.7-4.5) mg/dL Magnesium 1.5 L (1.6-2.6) mg/dL Total Bilirubin 0.4 (0.3-1.0) mg/dL Direct Bilirubin 0.1 (0.0-0.2) mg/dL Indirect Bilirubin 0.3 (0.0-1.2) mg/dL AST 17 (13-39) Units/L ALT 12 (7-52) Units/L Alkaline Phosphatase 120 H (34-104) Units/L Troponin I < 0.03 (< 0.04) ng/mL Serum Total Protein 6.7 (6.4-8.9) g/dL Albumin 3.9 (3.5-5.7) g/dL Globulin 2.8 (2.4-3.5) g/dL Albumin/Globulin Ratio 1.4 (1.1-2.2) Urine Color (Yellow) Urine Clarity (Clear) Urine pH (5.0-8.0) pH Units Ur Specific [place] (1.010-1.025) Urine Protein (Neg-Trace) mg/dL Urine Glucose (UA) (Normal) mg/dL Urine Ketones (Negative) mg/dL Urine Blood (Negative) Urine Nitrite (Negative) Urine Bilirubin (Negative) Urine Urobilinogen (Normal) mg/dL Ur Leukocyte Esterase (Negative) Urine Microscopic RBC (0-3) per hpf Urine Microscopic WBC (0-3) per hpf Ur Squamous Epith Cells (None-Few) per lpf Urine Bacteria (None-Few) per hpf Hyaline Casts (None-Few) per lpf Ur Culture Indicated? (NO) 06/02/18 Range/Units 18:35 WBC (4.3-11.1) K/mcL RBC (4.19-5.50) M/mcL Hgb (12.9-16.9) g/dL Hct (37.5-50.1) % MCV (83.0-100.0) fL MCH (28.0-33.3) pg MCHC (31.6-35.5) g/dL RDW (11.5-14.5) % Plt Count (140-400) K/mcL MPV (9.4-12.4) fL Immature Gran % (0-4) % Seg Neutrophils % % Lymphocytes % % Monocytes % % Eosinophils % % Basophils % % Neutrophils # (1.6-8.9) K/mcL Lymphocytes # (0.6-4.6) K/mcL Monocytes # (0.0-1.3) K/mcL Eosinophils # (0.0-0.6) K/mcL Basophils # (0.0-0.2) K/mcL PT (9.4-12.1) Seconds INR APTT (26.0-36.0) Seconds Sample Site ABG pH (7.32-7.45) pH Units ABG pCO2 (35-45) mmHg ABG pO2 (85-104) mmHg ABG HCO3 (21-27) mEq/L ABG Total CO2 (20-26) mEq/L ABG O2 Saturation (95-98) % ABG Base Excess (-2 to 3) mEq/L Respiration Rate O2 Delivery Device Blood Gas Modality Inspired O2 (1-15=lpm [id number]=%) Tidal Volume cc PEEP cm H2O Sodium (136-145) mEq/L Potassium (3.5-5.1) mEq/L Chloride (98-107) mEq/L Carbon Dioxide (23-29) mEq/L BUN (8-23) mg/dL Creatinine (0.70-1.30) mg/dL Est GFR ( Amer) (> 60) Est GFR (Non-Af Amer) (> 60) BUN/Creatinine Ratio (6-26) Glucose (70-105) mg/dL POC Glucose (70-99) mg/dL Calculated Osmolality (280-300) Lactic Acid (0.5-2.2) mmol/L Calcium (8.6-10.3) mg/dL Phosphorus (2.7-4.5) mg/dL Magnesium (1.6-2.6) mg/dL Total Bilirubin (0.3-1.0) mg/dL Direct Bilirubin (0.0-0.2) mg/dL Indirect Bilirubin (0.0-1.2) mg/dL AST (13-39) Units/L ALT (7-52) Units/L Alkaline Phosphatase (34-104) Units/L Troponin I (< 0.04) ng/mL Serum Total Protein (6.4-8.9) g/dL Albumin (3.5-5.7) g/dL Globulin (2.4-3.5) g/dL Albumin/Globulin Ratio (1.1-2.2) Urine Color Yellow (Yellow) Urine Clarity Clear (Clear) Urine pH 6.5 (5.0-8.0) pH Units Ur Specific [place] 1.019 (1.010-1.025) Urine Protein 30 H (Neg-Trace) mg/dL Urine Glucose (UA) 500 H (Normal) mg/dL Urine Ketones Negative (Negative) mg/dL Urine Blood Small H (Negative) Urine Nitrite Negative (Negative) Urine Bilirubin Negative (Negative) Urine Urobilinogen Normal (Normal) mg/dL Ur Leukocyte Esterase Negative (Negative) Urine Microscopic RBC 3-5 H (0-3) per hpf Urine Microscopic WBC 0-3 (0-3) per hpf Ur Squamous Epith Cells Few (None-Few) per lpf Urine Bacteria None Seen (None-Few) per hpf Hyaline Casts None Seen (None-Few) per lpf Ur Culture Indicated? NO (NO) - Radiology Data Radiology results reviewed: Yes I reviewed the patient's radiology results. Chest X-Ray 06/02/18 18:05 IMPRESSION: Endotracheal tube tip is in the expected position, superimposed mid trachea. Pulmonary vascular congestion, concerning for mild pulmonary edema. Elevation right hemidiaphragm with adjacent airspace disease, likely atelectasis. D/ / Charlie Camargo MD / Charlie Camargo MD Interpreting Provider: Charlie Camargo MD X-Ray 06/02/18 18:05 IMPRESSION: Tip of the nasogastric tube projects over the distal stomach. Marked gaseous distention of the stomach. D/ / 06/02/2018 18:23:04 Dong Rios MD / megan Interpreting Provider: Dong Rios MD Chest CT 06/02/18 18:08 IMPRESSION: Areas of consolidation to bilateral lower lobes, right middle lobe and to a much lesser extent right upper lobe which may relate to aspiration pneumonitis, multifocal infiltrates and/or atelectasis. Clinical correlation and continued follow-up suggested. Prominent precarinal lymph node, nonspecific but possibly reactive. Atherosclerosis to include coronary artery disease. D/ / 06/02/2018 19:04:27 Renzo Chan MD / megan Interpreting Provider: Renzo Chan MD Head CT 06/02/18 18:08 IMPRESSION: No acute intracranial abnormality. Mild age-related cerebral volume loss and moderate chronic microvascular ischemic disease. D/ / Daniel Luke / Daniel Luke Interpreting Provider: Daniel Luke - EKG Data EKG #1 EKG attestation: Yes I reviewed and interpreted this EKG. EKG results narrative: Sinus tachycardia at a rate of 110. IA interval is 180. QRS duration is 101. QT is 296. QTC is 401. No signs of acute ischemia. ST depression in lead V3 V4 V5 and V6.
[2018-06-02] MEDS ORDERED: *HR* Etomidate 20 MG/10 ML AMPUL IVP ONE (18:15)
[2018-06-02] MEDS ORDERED: FentaNYL (PF) 1,000 MCG in 0.9 % Sodium Chloride 80 ML IVC SCH (18:15)
[2018-06-02] MEDS ORDERED: *HR* Rocuronium Bromide 50 MG/5 ML VIAL IVP ONE (18:15)
[2018-06-02] MEDS ORDERED: *HR* FentaNYL (PF) 100 MCG/2 ML VIAL IVP ONE (18:15)
[2018-06-02 18:31] LABS: ABG Base Excess -3 mEq/L (-2 to 3); ABG HCO3 26 mEq/L (21-27); ABG Oxygen Saturation 98 % (95-98); ABG PCO2 65 mmHg (35-45); ABG PH 7.21 pH Units (7.32-7.45); ABG PO2 128 mmHg (85-104); ABG TCO2 28 mEq/L (20-26); Blood Gas Modality VC; Blood Gas PEEP 5 cm H2O; Blood Gas Respiration Rate 12; Blood Gas VT 450 cc
[2018-06-02 18:37] LABS: Basophils # 0.1 K/mcL (0.0-0.2); Basophils % 0.5 %; Eosinophils # 0.2 K/mcL (0.0-0.6); Eosinophils % 1.2 %; Hematocrit 34.5 % (37.5-50.1); Hemoglobin 11.8 g/dL (12.9-16.9); Immature Granulocytes % 2.1 % (0-4); Lymphocytes # 3.6 K/mcL (0.6-4.6); Lymphocytes % 20.6 %; Mean Corpuscular HGB Conc 34.2 g/dL (31.6-35.5); Mean Corpuscular Hemoglobin 30.4 pg (28.0-33.3); Mean Corpuscular Volume 88.9 fL (83.0-100.0); Monocytes % 5.7 %; Neutrophils # 12.3 K/mcL (1.6-8.9); Platelet Count 323 K/mcL (140-400); Red Blood Count 3.88 M/mcL (4.19-5.50); Red Cell Distribution Width 12.9 % (11.5-14.5); Segmented Neutrophils % 69.9 %
[2018-06-02 18:52] LABS: INR 1.2; Prothrombin Time 13.2 Seconds (9.4-12.1)
[2018-06-02 18:55] LABS: Activated Partial Thrombo Time 27.9 Seconds (26.0-36.0)
[2018-06-02] MEDS ORDERED: 0.9 % Sodium Chloride 500 ML IVC ONE (18:56)
[2018-06-02] MEDS ORDERED: Piperacillin/Tazobactam 3.375 GM in 0.9 % Sodium Chloride Mini Bag 100 ML IVPB ONE (18:58)
[2018-06-02] MEDS ORDERED: cefTRIAXone 1,000 MG in Water for inj. (sterile) 20 ML 10 ML IVP ONE (18:58)
[2018-06-02 19:06] LABS: Alanine Aminotransferase 12 Units/L (7-52); Albumin 3.9 g/dL (3.5-5.7); Albumin/Globulin Ratio 1.4 (1.1-2.2); Alkaline Phosphatase 120 Units/L (34-104); Aspartate Amino Transferase 17 Units/L (13-39); BUN/Creatinine Ratio 11 (6-26); Bilirubin,Direct 0.1 mg/dL (0.0-0.2); Bilirubin,Indirect 0.3 mg/dL (0.0-1.2); Bilirubin,Total 0.4 mg/dL (0.3-1.0); Blood Urea Nitrogen 17 mg/dL (8-23); Carbon Dioxide 23 mEq/L (23-29); Chloride 102 mEq/L (98-107); Globulin 2.8 g/dL (2.4-3.5); Glucose 326 mg/dL (70-105); Magnesium 1.5 mg/dL (1.6-2.6); Osmolality,Calculated 298 (280-300); Potassium 2.8 mEq/L (3.5-5.1); Sodium 137 mEq/L (136-145); Total Protein 6.7 g/dL (6.4-8.9); Troponin I < 0.03 ng/mL (< 0.04); eGFR For Non-African Americans 44 (> 60)
[2018-06-02] MEDS ORDERED: Insulin Regular, Human 100 UNIT/ML SQ ONE (19:07)
--- NOTE | 2018-06-02 19:54 | Emergency Department Note ---
Disposition Clinical Impression: Choking due to food in larynx Qualifiers: Encounter type: initial encounter Qualified Code(s): T17.320A - Food in larynx causing asphyxiation, initial encounter Aspiration pneumonia Qualifiers: Aspiration pneumonia type: due to regurgitated food Laterality: left Lung loca tion: unspecified part of lung Qualified Code(s): J69.0 - Pneumonitis due to inhalation of food and vomit Acute respiratory failure Qualifiers: Respiratory failure complication: hypoxia Qualified Code(s): J96.01 - Acute respiratory failure with hypoxia Disposition: Admitted As Inpatient Condition: Serious Time of Disposition: 22:13 General Adult HPI - General Chief complaint: ED Altered Mental Status Stated complaint: unresponsive Time Seen by Provider: 06/02/18 18:03 Source: EMS Mode of arrival: EMS Limitations: no limitations - History of Present Illness Pain Scale: 0 - Related Data Home Medications Medication Instructions Recorded Confirmed Benzonatate [Tessalon] 100 mg PO QID PRN 06/02/18 06/02/18 Benztropine [Cogentin] 1 mg PO BID 06/02/18 06/02/18 Calcium Carbonate 650 mg PO DAILY 06/02/18 06/02/18 Cholecalciferol (D-3) [Vitamin D] 2,000 unit PO DAILY 06/02/18 06/02/18 Loxapine Succinate [Loxapine] 10 mg PO QAM 06/02/18 06/02/18 Loxapine Succinate [Loxapine] 15 mg PO 06/02/18 06/02/18 Loxapine Succinate [Loxapine] 25 mg PO QAM 06/02/18 06/02/18 Loxapine Succinate [Loxapine] 50 tab PO 06/02/18 06/02/18 Metoprolol [Lopressor] 100 mg PO BID 06/02/18 06/02/18 Multivitamin [Daily Multiple 1 each PO DAILY 06/02/18 06/02/18 Vitamin] Omeprazole [PriLOSEC] 20 mg PO DAILY 06/02/18 06/02/18 Paliperidone [Paliperidone ER] 9 mg PO QAM 06/02/18 06/02/18 Pentoxifylline [TRENtal] 400 mg PO TIDWM 06/02/18 06/02/18 Potassium Chloride [Klor-Con 10] 10 meq PO MOWEFR 06/02/18 06/02/18 Potassium Chloride [Klor-Con 10] 20 meq PO SUTUTHSA 06/02/18 06/02/18 Saxagliptin HCl [Onglyza] 2.5 mg PO DAILY 06/02/18 06/02/18 Sennosides/Docusate Sodium 2 each PO BID PRN 06/02/18 06/02/18 [Senna-Docusate Sodium Tablet] Simvastatin [Zocor] 40 mg PO HS 06/02/18 06/02/18 glipiZIDE [Glucotrol] 2.5 mg PO BIDWM 06/02/18 06/02/18 Allergies Allergy/AdvReac Type Severity Reaction Status Date / Time No Known Allergies Allergy Verified 06/02/18 18:41 Past Medical History - Past Medical History Medical history: Reports: no medical history - Social History Smoking Status: Unknown if ever smoked Alcohol use: Reports: unknown Drug use: Reports: unknown Physical Exam - General Limitations: no limitations General appearance: alert, in no apparent distress Course Vital Signs Temperature 0 F L 06/02/18 17:56 Pulse Rate 135 06/02/18 17:56 Respiratory Rate 4 06/02/18 17:56 Blood Pressure 190/121 06/02/18 17:56 O2 Sat by Pulse Oximetry 93 06/02/18 17:56 Temperature 95.6 F L 06/02/18 18:23 Pulse Rate 88 06/02/18 21:09 Respiratory Rate 16 06/02/18 21:09 Blood Pressure 139/73 06/02/18 21:09 O2 Sat by Pulse Oximetry 99 06/02/18 21:09 Oxygen Delivery Oxygen Delivery Ventilator Medical Decision Making - Lab Data Result diagrams: 06/02/18 21:35 06/02/18 18:05 Lab Results 06/02/18 06/02/18 06/02/18 Range/Units 17:55 18:05 18:05 WBC 17.6 H (4.3-11.1) K/mcL RBC 3.88 L (4.19-5.50) M/mcL Hgb 11.8 L (12.9-16.9) g/dL Hct 34.5 L (37.5-50.1) % MCV 88.9 (83.0-100.0) fL MCH 30.4 (28.0-33.3) pg MCHC 34.2 (31.6-35.5) g/dL RDW 12.9 (11.5-14.5) % Plt Count 323 (140-400) K/mcL MPV 10.0 (9.4-12.4) fL Immature Gran % 2.1 (0-4) % Seg Neutrophils % 69.9 % Lymphocytes % 20.6 % Monocytes % 5.7 % Eosinophils % 1.2 % Basophils % 0.5 % Neutrophils # 12.3 H (1.6-8.9) K/mcL Lymphocytes # 3.6 (0.6-4.6) K/mcL Monocytes # 1.0 (0.0-1.3) K/mcL Eosinophils # 0.2 (0.0-0.6) K/mcL Basophils # 0.1 (0.0-0.2) K/mcL PT 13.2 H (9.4-12.1) Seconds INR 1.2 APTT 27.9 (26.0-36.0) Seconds Sample Site ABG pH (7.32-7.45) pH Units ABG pCO2 (35-45) mmHg ABG pO2 (85-104) mmHg ABG HCO3 (21-27) mEq/L ABG Total CO2 (20-26) mEq/L ABG O2 Saturation (95-98) % ABG Base Excess (-2 to 3) mEq/L Respiration Rate O2 Delivery Device Blood Gas Modality Inspired O2 (1-15=lpm zo02-206=%) Tidal Volume cc PEEP cm H2O Sodium (136-145) mEq/L Potassium (3.5-5.1) mEq/L Chloride (98-107) mEq/L Carbon Dioxide (23-29) mEq/L BUN (8-23) mg/dL Creatinine (0.70-1.30) mg/dL Est GFR ( Amer) (> 60) Est GFR (Non-Af Amer) (> 60) BUN/Creatinine Ratio (6-26) Glucose (70-105) mg/dL POC Glucose 345 H (70-99) mg/dL Calculated Osmolality (280-300) Lactic Acid (0.5-2.2) mmol/L Calcium (8.6-10.3) mg/dL Phosphorus (2.7-4.5) mg/dL Magnesium (1.6-2.6) mg/dL Total Bilirubin (0.3-1.0) mg/dL Direct Bilirubin (0.0-0.2) mg/dL Indirect Bilirubin (0.0-1.2) mg/dL AST (13-39) Units/L ALT (7-52) Units/L Alkaline Phosphatase (34-104) Units/L Troponin I (< 0.04) ng/mL Serum Total Protein (6.4-8.9) g/dL Albumin (3.5-5.7) g/dL Globulin (2.4-3.5) g/dL Albumin/Globulin Ratio (1.1-2.2) Urine Color (Yellow) Urine Clarity (Clear) Urine pH (5.0-8.0) pH Units Ur Specific [place] (1.010-1.025) Urine Protein (Neg-Trace) mg/dL Urine Glucose (UA) (Normal) mg/dL Urine Ketones (Negative) mg/dL Urine Blood (Negative) Urine Nitrite (Negative) Urine Bilirubin (Negative) Urine Urobilinogen (Normal) mg/dL Ur Leukocyte Esterase (Negative) Urine Microscopic RBC (0-3) per hpf Urine Microscopic WBC (0-3) per hpf Ur Squamous Epith Cells (None-Few) per lpf Urine Bacteria (None-Few) per hpf Hyaline Casts (None-Few) per lpf Ur Culture Indicated? (NO) 06/02/18 06/02/18 06/02/18 Range/Units 18:05 18:24 18:26 WBC (4.3-11.1) K/mcL RBC (4.19-5.50) M/mcL Hgb (12.9-16.9) g/dL Hct (37.5-50.1) % MCV (83.0-100.0) fL MCH (28.0-33.3) pg MCHC (31.6-35.5) g/dL RDW (11.5-14.5) % Plt Count (140-400) K/mcL MPV (9.4-12.4) fL Immature Gran % (0-4) % Seg Neutrophils % % Lymphocytes % % Monocytes % % Eosinophils % % Basophils % % Neutrophils # (1.6-8.9) K/mcL Lymphocytes # (0.6-4.6) K/mcL Monocytes # (0.0-1.3) K/mcL Eosinophils # (0.0-0.6) K/mcL Basophils # (0.0-0.2) K/mcL PT (9.4-12.1) Seconds INR APTT (26.0-36.0) Seconds Sample Site R Radial ABG pH 7.21 L (7.32-7.45) pH Units ABG pCO2 65 H (35-45) mmHg ABG pO2 128 H (85-104) mmHg ABG HCO3 26 (21-27) mEq/L ABG Total CO2 28 H (20-26) mEq/L ABG O2 Saturation 98 (95-98) % ABG Base Excess -3 L (-2 to 3) mEq/L Respiration Rate 12 O2 Delivery Device Adult Vent Blood Gas Modality VC Inspired O2 100.0 (1-15=lpm oc73-708=%) Tidal Volume 450 cc PEEP 5 cm H2O Sodium 137 (136-145) mEq/L Potassium 2.8 L (3.5-5.1) mEq/L Chloride 102 (98-107) mEq/L Carbon Dioxide 23 (23-29) mEq/L BUN 17 (8-23) mg/dL Creatinine 1.56 H (0.70-1.30) mg/dL Est GFR ( Amer) 53 L (> 60) Est GFR (Non-Af Amer) 44 L (> 60) BUN/Creatinine Ratio 11 (6-26) Glucose 326 H (70-105) mg/dL POC Glucose (70-99) mg/dL Calculated Osmolality 298 (280-300) Lactic Acid 5.0 H* (0.5-2.2) mmol/L Calcium 8.0 L (8.6-10.3) mg/dL Phosphorus 4.0 (2.7-4.5) mg/dL Magnesium 1.5 L (1.6-2.6) mg/dL Total Bilirubin 0.4 (0.3-1.0) mg/dL Direct Bilirubin 0.1 (0.0-0.2) mg/dL Indirect Bilirubin 0.3 (0.0-1.2) mg/dL AST 17 (13-39) Units/L ALT 12 (7-52) Units/L Alkaline Phosphatase 120 H (34-104) Units/L Troponin I < 0.03 (< 0.04) ng/mL Serum Total Protein 6.7 (6.4-8.9) g/dL Albumin 3.9 (3.5-5.7) g/dL Globulin 2.8 (2.4-3.5) g/dL Albumin/Globulin Ratio 1.4 (1.1-2.2) Urine Color (Yellow) Urine Clarity (Clear) Urine pH (5.0-8.0) pH Units Ur Specific [place] (1.010-1.025) Urine Protein (Neg-Trace) mg/dL Urine Glucose (UA) (Normal) mg/dL Urine Ketones (Negative) mg/dL Urine Blood (Negative) Urine Nitrite (Negative) Urine Bilirubin (Negative) Urine Urobilinogen (Normal) mg/dL Ur Leukocyte Esterase (Negative) Urine Microscopic RBC (0-3) per hpf Urine Microscopic WBC (0-3) per hpf Ur Squamous Epith Cells (None-Few) per lpf Urine Bacteria (None-Few) per hpf Hyaline Casts (None-Few) per lpf Ur Culture Indicated? (NO) 06/02/18 06/02/18 06/02/18 Range/Units 18:35 21:33 21:35 WBC 17.8 H (4.3-11.1) K/mcL RBC 4.00 L (4.19-5.50) M/mcL Hgb 11.9 L (12.9-16.9) g/dL Hct 34.8 L (37.5-50.1) % MCV 87.0 (83.0-100.0) fL MCH 29.8 (28.0-33.3) pg MCHC 34.2 (31.6-35.5) g/dL RDW 12.9 (11.5-14.5) % Plt Count 315 (140-400) K/mcL MPV 9.9 (9.4-12.4) fL Immature Gran % 1.0 (0-4) % Seg Neutrophils % 89.4 % Lymphocytes % 4.8 % Monocytes % 4.5 % Eosinophils % 0.1 % Basophils % 0.2 % Neutrophils # 15.9 H (1.6-8.9) K/mcL Lymphocytes # 0.9 (0.6-4.6) K/mcL Monocytes # 0.8 (0.0-1.3) K/mcL Eosinophils # 0.0 (0.0-0.6) K/mcL Basophils # 0.0 (0.0-0.2) K/mcL PT (9.4-12.1) Seconds INR APTT (26.0-36.0) Seconds Sample Site ABG pH (7.32-7.45) pH Units ABG pCO2 (35-45) mmHg ABG pO2 (85-104) mmHg ABG HCO3 (21-27) mEq/L ABG Total CO2 (20-26) mEq/L ABG O2 Saturation (95-98) % ABG Base Excess (-2 to 3) mEq/L Respiration Rate O2 Delivery Device Blood Gas Modality Inspired O2 (1-15=lpm qp10-978=%) Tidal Volume cc PEEP cm H2O Sodium (136-145) mEq/L Potassium (3.5-5.1) mEq/L Chloride (98-107) mEq/L Carbon Dioxide (23-29) mEq/L BUN (8-23) mg/dL Creatinine (0.70-1.30) mg/dL Est GFR ( Amer) (> 60) Est GFR (Non-Af Amer) (> 60) BUN/Creatinine Ratio (6-26) Glucose (70-105) mg/dL POC Glucose (70-99) mg/dL Calculated Osmolality (280-300) Lactic Acid 3.2 H (0.5-2.2) mmol/L Calcium (8.6-10.3) mg/dL Phosphorus (2.7-4.5) mg/dL Magnesium (1.6-2.6) mg/dL Total Bilirubin (0.3-1.0) mg/dL Direct Bilirubin (0.0-0.2) mg/dL Indirect Bilirubin (0.0-1.2) mg/dL AST (13-39) Units/L ALT (7-52) Units/L Alkaline Phosphatase (34-104) Units/L Troponin I (< 0.04) ng/mL Serum Total Protein (6.4-8.9) g/dL Albumin (3.5-5.7) g/dL Globulin (2.4-3.5) g/dL Albumin/Globulin Ratio (1.1-2.2) Urine Color Yellow (Yellow) Urine Clarity Clear (Clear) Urine pH 6.5 (5.0-8.0) pH Units Ur Specific [place] 1.019 (1.010-1.025) Urine Protein 30 H (Neg-Trace) mg/dL Urine Glucose (UA) 500 H (Normal) mg/dL Urine Ketones Negative (Negative) mg/dL Urine Blood Small H (Negative) Urine Nitrite Negative (Negative) Urine Bilirubin Negative (Negative) Urine Urobilinogen Normal (Normal) mg/dL Ur Leukocyte Esterase Negative (Negative) Urine Microscopic RBC 3-5 H (0-3) per hpf Urine Microscopic WBC 0-3 (0-3) per hpf Ur Squamous Epith Cells Few (None-Few) per lpf Urine Bacteria None Seen (None-Few) per hpf Hyaline Casts None Seen (None-Few) per lpf Ur Culture Indicated? NO (NO) Critical Care Time Critical Care Time: Yes Total Critical Care Time: 45 Attestation: Critical care performed: Time is exclusive of separately billable procedures. Time includes: direct patient care, patient reassessment, coordination of patient care, interpretation of data (laboratory data, radiology data, and respiratory data), review of patient's medical records, medical consultation and documentation of patient care. Procedures included in critical care time: Procedures excluded from critical care time: Attestation Statement - Attestation Attestation: I examined this patient and my medical decision-making was reviewed with the Resident Physician. I agree with the documented findings, disposition and treatment plan as described except to the extent set forth below. Patient to the ED after a choking episode. Patient was observed choking in his halfway. They called 911. EMS states that he went unresponsive. They had to bag him. They were able to get a couple of "chunks of stuff" out of his mouth. Heimlich was unsuccessful. On arrival here patient was being bagged. Sats in the mid 80s. Poorly responsive but nonverbal. Plan. Patient was bagged. Intubated. A large piece of material was removed from his posterior pharynx. I was physically present per Dr. Lewis procedure. Imaging as showing signs of aspiration. Sepsis order set. Patient's given broad-spectrum antibio tics. We will admit to ICU. Patient admitted to ICU. Reevaluate. Vital signs stable. Patient tolerating ventilator with stable vital signs. Chest X-Ray 06/02/18 18:05 IMPRESSION: Endotracheal tube tip is in the expected position, superimposed mid trachea. Pulmonary vascular congestion, concerning for mild pulmonary edema. Elevation right hemidiaphragm with adjacent airspace disease, likely atelectasis. D/ / Charlie Camargo MD / Charlie Camargo MD Interpreting Provider: Charlie Camargo MD X-Ray 06/02/18 18:05 IMPRESSION: Tip of the nasogastric tube projects over the distal stomach. Marked gaseous distention of the stomach. D/ / 06/02/2018 18:23:04 Dong Rios MD / megan Interpreting Provider: Dong Rios MD Chest CT 06/02/18 18:08 IMPRESSION: Areas of consolidation to bilateral lower lobes, right middle lobe and to a much lesser extent right upper lobe which may relate to aspiration pneumonitis, multifocal infiltrates and/or atelectasis. Clinical correlation and continued follow-up suggested. Prominent precarinal lymph node, nonspecific but possibly reactive. Atherosclerosis to include coronary artery disease. D/ / 06/02/2018 19:04:27 Renzo Chan MD / megan Interpreting Provider: Renzo Chan MD Head CT 06/02/18 18:08 IMPRESSION: No acute intracranial abnormality. Mild age-related cerebral volume loss and moderate chronic microvascular ischemic disease. D/ / Daniel Luke / Daniel Luke Interpreting Provider: Daniel Luke
[2018-06-02 20:04] LABS: Bilirubin,Urine Negative (Negative); Blood,Urine Small (Negative); Clarity,Urine Clear (Clear); Color,Urine Yellow (Yellow); Glucose,Urine (UA) 500 mg/dL (Normal); Ketones,Urine Negative (Negative); Leukocyte Esterase,Urine Negative (Negative); Nitrite,Urine Negative (Negative); PH,Urine 6.5 pH Units (5.0-8.0); Protein,Urine 30 mg/dL (Neg-Trace); Specific Gravity,Urine 1.019 (1.010-1.025); Urobilinogen,Urine Normal (Normal)
[2018-06-02 20:08] LABS: Bacteria,Urine None Seen per hpf (None-Few); Hyaline Casts,Urine None Seen per lpf (None-Few); Squamous Epithelial Cell,Urine Few per lpf (None-Few); WBC,Urine 0-3 per hpf (0-3)
--- NOTE | 2018-06-02 20:10 | Internal Med History&Physical ---
<Jasmin Salas Robbin - Last Filed: 06/02/18 22:03> Date of Encounter: 06/02/18 Time of Encounter: 20:47 Internal Medicine - H&P: HPI Chief complaint: Unresponsive Admitted From: Home ([facility]) History of present illness: Mr. Craig is a 73 year old male with a history of AFib on ASA dt fall risk and follows with Dr. Khan, bilateral carotid artery stenosis s/p bilateral endarterectomy 2015, diastolic HFpEF (55-60% 02/18/18), CAD, CVA, HTN, diabetes (A1C 7.6 03/05), CKD stage III follows and with Dr. Jorge, anemia, hypokalemia, HLD, COPD, and Schizophrenia who [facility] caregiver reportedly performed the Heimlich and CPR until EMS arrived. Patient was found unresponsive by EMS and was transported to the [place] ER. On arrival, patient was cyanotic and unresponsive. ER course: T95.6, HR 135, RR 4, BP 190/121, required PPV gots sats up to the 80s Sedated with Propafol Large amt of blood and food removed form trachea Rocuronium x1, then Intubated and ventilated CXR confirmed appropriate placement of ET tube. Urinary vascular congestion concerning for mild pulmonary edema. KUB confirmed appropriate placement of NG tube. Gaseous distention of the stomach and oderate to large colonic stool burden noted. Chest CT with b/l lower lobe, right middle lobe, and right upper lobe con soldations, which may be related to aspiration pneumonitis versus multifocal infiltrates or atelectasis. Prominent pre-carinal lymph node, possibly reactive. Head CT without acute abnormalities Past Med Surg Social Fam HX - Past Medical History Medical history: no medical history - Social History Smoking Status: Unknown if ever smoked Alcohol use: unknown Drug use: unknown Internal Medicine - H&P: Meds Benzonatate [Tessalon] 100 mg PO QID PRN 06/02/18 [History] Benztropine [Cogentin] 1 mg PO BID 06/02/18 [History] Cholecalciferol (D-3) [Vitamin D] 2,000 unit PO DAILY 06/02/18 [History] Loxapine Succinate [Loxapine] 10 mg PO QAM 06/02/18 [History] Loxapine Succinate [Loxapine] 15 mg PO HS 06/02/18 [History] Loxapine Succinate [Loxapine] 25 mg PO QAM 06/02/18 [History] Loxapine Succinate [Loxapine] 50 tab PO HS 06/02/18 [History] Metoprolol [Lopressor] 100 mg PO BID 06/02/18 [History] Multivitamin [Daily Multiple Vitamin] 1 each PO DAILY 06/02/18 [History] Omeprazole [PriLOSEC] 20 mg PO DAILY 06/02/18 [History] Paliperidone [Paliperidone ER] 9 mg PO QAM 06/02/18 [History] Potassium Chloride [Klor-Con 10] 10 meq PO MOWEFR 06/02/18 [History] Potassium Chloride [Klor-Con 10] 20 meq PO SUTUTHSA 06/02/18 [History] RX: Calcium Carbonate 650 mg PO DAILY 06/02/18 [History] RX: Pentoxifylline [TRENtal] 400 mg PO TIDWM 06/02/18 [History] Saxagliptin HCl [Onglyza] 2.5 mg PO DAILY 06/02/18 [History] Sennosides/Docusate Sodium [Senna-Docusate Sodium Tablet] 2 each PO BID PRN 06/02/18 [History] Simvastatin [Zocor] 40 mg PO HS 06/02/18 [History] glipiZIDE [Glucotrol] 2.5 mg PO BIDWM 06/02/18 [History] Allergy/AdvReac Type Severity Reaction Status Date / Time No Known Allergies Allergy Verified 06/02/18 18:41 ROS unobtainable: due to endotracheal tube, due to mental status All Systems PM: A 10-system review of systems was performed and is negative for pertinent findings except as documented above in the HPI. - Constitutional Vitals: Temp Pulse Resp BP Pulse Ox 95.6 F L 104 16 159/95 100 06/02/18 18:23 06/02/18 18:51 06/02/18 19:47 06/02/18 19:47 06/02/18 19:47 General appearance: Present: no acute distress Exam: sedated and intubated - Head Head exam: Present: atraumatic, normocephalic - Eye Eye exam: Present: normal appearance - ENT ENT exam: Present: mucous membranes dry Additional comments: ET tube in mouth - Neck Neck exam general surgery: Present: supple, trachea midline. Absent: lymphadenopathy - Respiratory Respiratory exam: Present: CTAB. Absent: accessory muscle use, rales, rhonchi, wheezes - Cardiovascular Cardiovascular exam: Present: irregular rhythm (regular rate), +S1, +S2. Absent: diastolic murmur, gallop, rubs, systolic murmur - GI/Abdominal GI/Abdominal exam: Present: normal bowel sounds, soft, no peritoneal signs. Absent: distended, tenderness - Extremities Exam Extremities exam: Present: warm, radial pulses palpable and symmetrical. Absent: calf tenderness, cyanotic, pedal edema - Neurological Exam Neurological exam: Present: altered (sedated), pronater drift, speech deficit. Absent: facial droop - Psychiatric Additional comments: sedated - Skin Skin exam: Present: dry, intact. Absent: rash Internal Med - H&P Results - Labs CBC & Chem 7: 06/02/18 21:35 06/02/18 18:05 Labs: Short CBC 06/02/18 Range/Units 18:05 WBC 17.6 H (4.3-11.1) K/mcL Hgb 11.8 L (12.9-16.9) g/dL Hct 34.5 L (37.5-50.1) % Plt Count 323 (140-400) K/mcL Neutrophils # 12.3 H (1.6-8.9) K/mcL BMP 06/02/18 18:05 Sodium 137 Potassium 2.8 L Chloride 102 Carbon Dioxide 23 BUN 17 Creatinine 1.56 H Glucose 326 H Calcium 8.0 L Cardiac Enzymes 06/02/18 Range/Units 18:05 Troponin I < 0.03 (< 0.04) ng/mL Liver Function 06/02/18 Range/Units 18:05 Total Bilirubin 0.4 (0.3-1.0) mg/dL Direct Bilirubin 0.1 (0.0-0.2) mg/dL AST 17 (13-39) Units/L ALT 12 (7-52) Units/L Alkaline Phosphatase 120 H (34-104) Units/L Albumin 3.9 (3.5-5.7) g/dL - ABG Interpretation ABG results: 06/02/18 18:26 ABG pH 7.21 L ABG pCO2 65 H ABG pO2 128 H ABG HCO3 26 ABG Total CO2 28 H ABG O2 Saturation 98 ABG Base Excess -3 L - Impressions ITS Impressions Chest X-Ray 06/02/18 18:05 IMPRESSION: Endotracheal tube tip is in the expected position, superimposed mid trachea. Pulmonary vascular congestion, concerning for mild pulmonary edema. Elevation right hemidiaphragm with adjacent airspace disease, likely atelectasis. D/ / Charlie Camargo MD / Charlie Camargo MD Interpreting Provider: Charlie Camargo MD X-Ray 06/02/18 18:05 IMPRESSION: Tip of the nasogastric tube projects over the distal stomach. Marked gaseous distention of the stomach. D/ / 06/02/2018 18:23:04 Dong Rios MD / megan Interpreting Provider: Dong Rios MD Chest CT 06/02/18 18:08 IMPRESSION: Areas of consolidation to bilateral lower lobes, right middle lobe and to a much lesser extent right upper lobe which may relate to aspiration pneumonitis, multifocal infiltrates and/or atelectasis. Clinical correlation and continued follow-up suggested. Prominent precarinal lymph node, nonspecific but possibly reactive. Atherosclerosis to include coronary artery disease. D/ / 06/02/2018 19:04:27 Renzo Chan MD / megan Interpreting Provider: Renzo Chan MD Head CT 06/02/18 18:08 IMPRESSION: No acute intracranial abnormality. Mild age-related cerebral volume loss and moderate chronic microvascular ischemic disease. D/ / Daniel Luke / Daniel Luke Interpreting Provider: Daniel Luke - Assessment and Plan (1) Severe sepsis Current Visit: Yes Status: Acute Assessment and plan: On presentation T 95.6, HR 135, WBC 17.6, lactate 5.0 Possibly secondary to aspiration pneumonitis, however higher suspicion for reactive d/t respiratory distress with hypoxia Chest CT with b/l lower lobe, right middle lobe, and right upper lobe consolidations, aspiration pneumonitis versus multifocal infiltrates or atelectasis. s/p 4 L IVFs Blood cultures pending UA negative Ampicillin/Sulbactam to treat empirically for aspiration pneumonia Plan for Bronchoscopy tomorrow, Pulm consulted (2) Acute respiratory failure with hypoxia and hypercapnia Current Visit: Yes Status: Acute Assessment and plan: Spataro acidosis and hypoxia secondary to aspiration ABG on adm pH 7.21, PCO2 65, PO2 128, HCO3 26 Repeat ABG pH 7.37, PCO2, 46, PO2 78, HCO3 [address] with b/l lower lobe, right middle lobe, and right upper lobe consolidations, aspiration pneumonitis versus multifocal infiltrates or atelectasis. Intubated in the ER and on ventilator Pulm consulted, plan for bronchoscopy tomorrow Repeat CXR in the AM Monitor and adjust vent settings as needed (3) Aspiration of food Current Visit: Yes Status: Acute Assessment and plan: History of multiple choking episodes 2 to not chewing his food well Chest CT with dependent aspiration contents Ampicillin/sulbactam for empiric treatment for aspiration pneumonia Pulm consulted, plan for bronchoscopy tomorrow Qualifiers: Encounter type: initial encounter Qualified Code(s): T17.920A - Food in respiratory tract, part unspecified causing asphyxiation, initial encounter (4) Lactic acidosis Current Visit: Yes Status: Acute Assessment and plan: Suspect reactive due to respiratory distress and hypoxia, or suspicion for severe sepsis Lactic acid 5.0 on adm, 3.2 on repeat s/p 4L IVFs in the ER Repeat lactic acid pending for midnight Ampicillin/sulbactam for empiric treatment of aspiration pneumonia (5) Leukocytosis Current Visit: Yes Status: Acute Assessment and plan: Suspect reactive due to respiratory distress and hypoxia secondary to aspiration, lower suspicion for severe sepsis WBC 17.6 on adm, 17.[address] with b/l lower lobe, right middle lobe, and right upper lobe consolidations, aspiration pneumonitis versus multifocal infiltrates or atelectasis. s/p 4L IVFs in ER Cultures pending UA negative Ampicillin/sulbactam for empiric treatment for aspiration pneumonia We will recheck on AM labs Qualifiers: Leukocytosis type: unspecified Qualified Code(s): D72.829 - Elevated white blood cell count, unspecified (6) Hypokalemia Current Visit: Yes Status: Chronic Assessment and plan: Chronic K 2.8 o adm, 3.5 on repeat s/p supplementation Recheck on AM labs, supplement per electrolyte protocol (7) Anemia Current Visit: Yes Status: Chronic Assessment and plan: Chronic, stable Continue to monitor Qualifiers: Anemia type: unspecified type Qualified Code(s): D64.9 - Anemia, unspecified (8) Afib Current Visit: Yes Status: Acute Assessment and plan: Chronic, rate controlled Follows with Dr. Khan Not on anticoagulation, ASA only due to fall risk On telemetry Holding home meds Qualifiers: Atrial fibrillation type: chronic Qualified Code(s): I48.2 - Chronic atrial fibrillation (9) Diastolic heart failure with preserved ejection fraction Current Visit: Yes Status: Acute Assessment and plan: No acute exacerbation Follows with Dr. Khan Echo 03/10/18LVEF 55-60%, mild LV diastolic dysfunction, mild MR, mild TR Holding home meds (10) CAD (coronary artery disease) Current Visit: Yes Status: Chronic Assessment and plan: Holding home meds Qualifiers: Coronary Disease-Associated Artery/Lesion type: unspecified vessel or lesion type [place] vs. transplanted heart: [place] heart Associated angina: angina presence unspecified Qualified Code(s): I25.10 - Atherosclerotic heart disease of [place] coronary artery without angina pectoris (11) History of CVA (cerebrovascular accident) Current Visit: Yes Status: Chronic Assessment and plan: Remote history Holding home meds (12) HTN (hypertension) Current Visit: Yes Status: Chronic Assessment and plan: Chronic, stable Holding home meds Qualifiers: Hypertension type: essential hypertension Qualified Code(s): I10 - Essential (primary) hypertension (13) Diabetes Current Visit: Yes Status: Chronic Assessment and plan: LD SSI Accu-Checks Q6 Qualifiers: Diabetes mellitus type: type 2 Diabetes mellitus shelter insulin use: without terminal supervisor use Diabetes mellitus complication status: with kidney complications Diabetes mellitus complication detail: with chronic kidney disease Chronic kidney disease stage: stage 3 (moderate) Qualified Code(s): E11.22 - Type 2 diabetes mellitus with diabetic chronic kidney disease; N18.3 - Chronic kidney disease, stage 3 (moderate) (14) Stage III chronic kidney disease Current Visit: Yes Status: Chronic Assessment and plan: Chronic, at baseline Follows with Dr. Jorge We will monitor kidney function (15) HLD (hyperlipidemia) Current Visit: Yes Status: Chronic Assessment and plan: Holding home meds Qualifiers: Hyperlipidemia type: unspecified Qualified Code(s): E78.5 - Hyperlipidemia, unspecified (16) COPD (chronic obstructive pulmonary disease) Current Visit: Yes Status: Chronic Assessment and plan: No acute exacerbation Holding home meds Qualifiers: COPD type: unspecified COPD Qualified Code(s): J44.9 - Chronic obstructive pulmonary disease, unspecified (17) Paranoid schizophrenia Current Visit: Yes Status: Chronic Assessment and plan: Holding home meds for now while under sedation on ventilator - Time Spent With Patient Total time spent is greater than 50% in coordination of care (as documented) at patient's floor/unit and/or counseling patient: 25 - 35 minutes <Gama Morris - Last Filed: 06/03/18 00:14> Date of Encounter: 06/03/18 Internal Medicine - H&P: HPI History of present illness: Mr. Craig is a 73 year old male All Systems PM: A 10-system review of systems was performed and is negative for pertinent findings except as documented above in the HPI. - Constitutional Vitals: Temp Pulse Resp BP Pulse Ox 97.2 F L 83 12 124/84 100 06/02/18 22:42 06/03/18 00:00 06/03/18 00:00 06/03/18 00:00 06/03/18 00:00 Internal Med - H&P Results - Labs CBC & Chem 7: 06/02/18 21:35 06/02/18 21:33 Labs: Short CBC 06/02/18 06/02/18 Range/Units 18:05 21:35 WBC 17.6 H 17.8 H (4.3-11.1) K/mcL Hgb 11.8 L 11.9 L (12.9-16.9) g/dL Hct 34.5 L 34.8 L (37.5-50.1) % Plt Count 323 315 (140-400) K/mcL Neutrophils # 12.3 H 15.9 H (1.6-8.9) K/mcL BMP 06/02/18 06/02/18 18:05 21:33 Sodium 137 140 Potassium 2.8 L 3.5 Chloride 102 104 Carbon Dioxide 23 25 BUN 17 16 Creatinine 1.56 H 1.37 H Glucose 326 H 252 H Calcium 8.0 L 8.2 L Cardiac Enzymes 06/02/18 Range/Units 18:05 Troponin I < 0.03 (< 0.04) ng/mL Liver Function 06/02/18 Range/Units 18:05 Total Bilirubin 0.4 (0.3-1.0) mg/dL Direct Bilirubin 0.1 (0.0-0.2) mg/dL AST 17 (13-39) Units/L ALT 12 (7-52) Units/L Alkaline Phosphatase 120 H (34-104) Units/L Albumin 3.9 (3.5-5.7) g/dL Urine 06/02/18 Range/Units 18:35 Urine Color Yellow (Yellow) Urine Clarity Clear (Clear) Urine pH 6.5 (5.0-8.0) pH Units Ur Specific [place] 1.019 (1.010-1.025) Urine Protein 30 H (Neg-Trace) mg/dL Urine Glucose (UA) 500 H (Normal) mg/dL - ABG Interpretation ABG results: 06/02/18 06/02/18 18:26 22:05 ABG pH 7.21 L 7.37 D ABG pCO2 65 H 46 H ABG pO2 128 H 78 L D ABG HCO3 26 27 ABG Total CO2 28 H 28 H ABG O2 Saturation 98 95 ABG Base Excess -3 L 1 - Impressions ITS Impressions Chest X-Ray 06/02/18 18:05 IMPRESSION: Endotracheal tube tip is in the expected position, superimposed mid trachea. Pulmonary vascular congestion, concerning for mild pulmonary edema. Elevation right hemidiaphragm with adjacent airspace disease, likely atelectasis. D/ / Charlie Camargo MD / Charlie Camargo MD Interpreting Provider: Charlie Camargo MD X-Ray 06/02/18 18:05 IMPRESSION: Tip of the nasogastric tube projects over the distal stomach. Marked gaseous distention of the stomach. D/ / 06/02/2018 18:23:04 Dong Rios MD / megan Interpreting Provider: Dong Rios MD Chest CT 06/02/18 18:08 IMPRESSION: Areas of consolidation to bilateral lower lobes, right middle lobe and to a much lesser extent right upper lobe which may relate to aspiration pneumonitis, multifocal infiltrates and/or atelectasis. Clinical correlation and continued follow-up suggested. Prominent precarinal lymph node, nonspecific but possibly reactive. Atherosclerosis to include coronary artery disease. D/ / 06/02/2018 19:04:27 Renzo Cahn MD / megan Interpreting Provider: Renzo Chan MD Head CT 06/02/18 18:08 IMPRESSION: No acute intracranial abnormality. Mild age-related cerebral volume loss and moderate chronic microvascular ischemic disease. D/ / Daniel Luke / Daniel Luke Interpreting Provider: Daniel Luke - Time Spent With Patient Total time spent is greater than 50% in coordination of care (as documented) at patient's floor/unit and/or counseling patient: - Attending Attestation I examined this patient and my medical decision-making was reviewed with the Resident Physician. I agree with the documented findings, disposition and treatment plan as described except to the extent set forth below. 73-year-old male with history of MRDD presented [facility] This occurred after the patient was quickly eating cinnamon bread and he appeared to aspirate some. This caused him to become hypoxic and go unresponsive. Per EMS report there were able to remove some material from the airway. Upon arrival to the emergency department patient was intubated. Discussed with the ER physician who states that in the larynx a large piece of bread was encountered which was removed. There is some concern that there is more aspirated material deeper within the lungs. Family history is unobtainable due to patient currently being intubated and sedated on mechanical ventilation. Caregivers at bedside could not provide a family history. On exam patient is intubated and sedated. Breath sounds are equal bilaterally and slightly diminished. Laboratory evaluation shows a leukocytosis, elevated creatinine, is unclear whether this is acute or the patient has underlying chronic kidney disease. Lactic acidosis of 5.0. Admitted to the ICU and maintain mechanical ventilation overnight. ABG shortly code shows mild respiratory acidosis, will adjust vent settings but will allow for some mild persistent permissive hypercapnia. Trend lactate. [place] [employer] for aspiration pneumonia coverage. Consult pulmonology, patient will likely require bronchoscopy in the morning.
[2018-06-02] MEDS ORDERED: Naloxone 0.4 MG/ML INJ IVP PRN (21:13)
[2018-06-02] MEDS ORDERED: D5% in Water 1,000 ML IVC PRN (21:23)
[2018-06-02] MEDS ORDERED: *HR* Dextrose 50 % in Water (Syg) 50 ML SYRINGE IVP PRN (21:23)
[2018-06-02] MEDS ORDERED: Dextrose Gel 15 GM/37.5 ML TUBE PO PRN ×2 (21:23)
[2018-06-02] MEDS ORDERED: Artificial Tears SOLN 15 ML BOTTLE BOTH EYES PRN (21:25)
[2018-06-02 21:49] LABS: Basophils % 0.2 %; Eosinophils % 0.1 %; Hematocrit 34.8 % (37.5-50.1); Hemoglobin 11.9 g/dL (12.9-16.9); Lymphocytes # 0.9 K/mcL (0.6-4.6); Lymphocytes % 4.8 %; Mean Corpuscular HGB Conc 34.2 g/dL (31.6-35.5); Mean Corpuscular Hemoglobin 29.8 pg (28.0-33.3); Mean Platelet Volume 9.9 fL (9.4-12.4); Monocytes # 0.8 K/mcL (0.0-1.3); Monocytes % 4.5 %; Neutrophils # 15.9 K/mcL (1.6-8.9); Platelet Count 315 K/mcL (140-400); Red Cell Distribution Width 12.9 % (11.5-14.5); Segmented Neutrophils % 89.4 %
[2018-06-02 22:11] LABS: ABG Base Excess 1 mEq/L (-2 to 3); ABG HCO3 27 mEq/L (21-27); ABG Oxygen Saturation 95 % (95-98); ABG PCO2 46 mmHg (35-45); ABG PH 7.37 pH Units (7.32-7.45); ABG PO2 78 mmHg (85-104); ABG TCO2 28 mEq/L (20-26); Blood Gas Modality PRVC; Blood Gas PEEP 5 cm H2O; Blood Gas Respiration Rate 16; Blood Gas VT 450 cc
[2018-06-02 22:16] LABS: BUN/Creatinine Ratio 12 (6-26); Blood Urea Nitrogen 16 mg/dL (8-23); Calcium 8.2 mg/dL (8.6-10.3); Carbon Dioxide 25 mEq/L (23-29); Chloride 104 mEq/L (98-107); Glucose 252 mg/dL (70-105); Magnesium 1.6 mg/dL (1.6-2.6); Osmolality,Calculated 300 (280-300); Potassium 3.5 mEq/L (3.5-5.1); Sodium 140 mEq/L (136-145); eGFR For Non-African Americans 51 (> 60)
[2018-06-02] MEDS: Pantoprazole 40 MG VIAL IVP SCH (23:23)
[2018-06-02] MEDS: Ampicillin/Sulbactam 1,500 MG in 0.9 % Sodium Chloride Mini Bag 100 ML IVPB SCH (23:23)
[2018-06-02] MEDS: Insulin LISPRO 300 UNITS/3 ML VIAL SQ SCH (23:24)
[2018-06-02] MEDS: Artificial Tears SOLN 15 ML BOTTLE BOTH EYES SCH (23:29)
[2018-06-03 00:15] LABS: ABG Base Excess 2 mEq/L (-2 to 3); ABG HCO3 29 mEq/L (21-27); ABG Oxygen Saturation 95 % (95-98); ABG PCO2 53 mmHg (35-45); ABG PH 7.35 pH Units (7.32-7.45); ABG PO2 81 mmHg (85-104); ABG TCO2 31 mEq/L (20-26); Blood Gas Modality ASSIST CONTROL; Blood Gas PEEP 5 cm H2O; Blood Gas Respiration Rate 12; Blood Gas VT 450 cc
[2018-06-03] MEDS: Artificial Tears SOLN 15 ML BOTTLE BOTH EYES SCH ×3 (03:02→11:07)
[2018-06-03 03:08] LABS: Basophils % 0.3 %; Eosinophils # 0.1 K/mcL (0.0-0.6); Eosinophils % 0.4 %; Hematocrit 31.8 % (37.5-50.1); Hemoglobin 10.7 g/dL (12.9-16.9); Immature Granulocytes % 0.3 % (0-4); Lymphocytes # 1.6 K/mcL (0.6-4.6); Lymphocytes % 11.1 %; Mean Corpuscular HGB Conc 33.6 g/dL (31.6-35.5); Mean Corpuscular Hemoglobin 29.6 pg (28.0-33.3); Mean Corpuscular Volume 87.8 fL (83.0-100.0); Mean Platelet Volume 9.8 fL (9.4-12.4); Monocytes % 6.7 %; Neutrophils # 11.5 K/mcL (1.6-8.9); Platelet Count 297 K/mcL (140-400); Red Blood Count 3.62 M/mcL (4.19-5.50); Segmented Neutrophils % 81.2 %
[2018-06-03 03:31] LABS: Calcium 8.1 mg/dL (8.6-10.3); Potassium 3.2 mEq/L (3.5-5.1)
[2018-06-03 04:58] LABS: ABG Base Excess 4 mEq/L (-2 to 3); ABG HCO3 30 mEq/L (21-27); ABG Oxygen Saturation 97 % (95-98); ABG PCO2 50 mmHg (35-45); ABG PH 7.39 pH Units (7.32-7.45); ABG PO2 90 mmHg (85-104); ABG TCO2 31 mEq/L (20-26); Blood Gas Modality ASSIST CONTROL; Blood Gas PEEP 5 cm H2O; Blood Gas Respiration Rate 12; Blood Gas VT 450 cc
[2018-06-03] MEDS: Ampicillin/Sulbactam 1,500 MG in 0.9 % Sodium Chloride Mini Bag 100 ML IVPB SCH ×4 (05:02→23:59)
[2018-06-03] MEDS: *HR* Heparin 5,000 UNIT/ML VIAL SQ SCH ×2 (05:05→18:18)
[2018-06-03] MEDS: Insulin LISPRO 300 UNITS/3 ML VIAL SQ SCH ×3 (05:05→18:20)
[2018-06-03] MEDS: Pantoprazole 40 MG VIAL IVP SCH (08:54)
[2018-06-03] MEDS ORDERED: Chlorhexidine Rinse 15 ML MOUTHWASH MM SCH (09:00)
--- NOTE | 2018-06-03 09:18 | Pulmonology Consult Note ---
<Estrella Sheth M - Last Filed: 06/03/18 17:41> Date of Encounter: 06/03/18 Time of Encounter: 09:18 Assessment and Plan (1) Severe sepsis Current Visit: Yes Status: Acute * Likely secondary to aspiration pneumonitis * Chest CT with b/l lower lobe, right middle lobe, and right upper lobe consolidations, aspiration pneumonitis versus multifocal infiltrates or atelectasis * WBC normalized overnight * Continue Unasyn * Patient is tachycardic but otherwise vital signs are stable, will resume home metoprolol * Now on 2 L nasal cannula * Patient to transition to floor today (2) Aspiration pneumonia Current Visit: Yes Status: Acute * BAL pending * Blood cultures pending * Continue ampicillin/sulbatam likely aspiration pneumonia * Will obtain speech evaluation given nutrition recommendations Qualifiers: Aspiration pneumonia type: due to regurgitated food Laterality: left Lung location: unspecified part of lung Qualified Code(s): J69.0 - Pneumonitis due to inhalation of food and vomit (3) Acute respiratory failure with hypoxia and hypercapnia Current Visit: Yes Status: Acute * Patient hypoxic requiring intubation in the emergency room * ABG shows significant improvement overnight with stabilization of pH and PCO2 * After successful spontaneous breathing trouble patient was extubated this morning at approximately 0955 * Continues to saturate well on 2 L nasal cannula * Denies shortness of breath (4) Lactic acidosis Current Visit: Yes Status: Acute * On presentation lactate 5.0, now 1.6 * 4 L fluid bolus given after presentation to the emergency department (5) Hypokalemia Current Visit: Yes Status: Chronic * Hypokalemia today of 3.2 * Continue on electrolyte replacement per protocol (6) Aspiration of food Current Visit: Yes Status: Acute * Patient was extubated this morning after appropriate spontaneous breathing trial * Bronchoscopy was ordered and shows no evidence of food impaction. BAL sent. 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 use Diabetes mellitus complication status: with circulatory complication Diabetes mellitus complication detail: with peripheral angiopathy without gangrene Qualified Code(s): E11.51 - Type 2 diabetes mellitus with diabetic peripheral angiopathy without gangrene; Z79.4 - group home (current) use of insulin (8) HTN (hypertension) Current Visit: No Status: Chronic * Hold home medications at this time Qualifiers: Hypertension type: essential hypertension Qualified Code(s): I10 - Essential (primary) hypertension (9) Atrial fibrillation Current Visit: Yes Status: Chronic * Chronic, rate control * Continues in 90s to 100s overnight * Will resume home metoprolol 100mg BID Qualifiers: Atrial fibrillation type: chronic Qualified Code(s): I48.2 - Chronic atrial fibrillation (10) Stage III chronic kidney disease Current Visit: Yes Status: Chronic * Creatinine 1.45 today, up from 1.37 on admission * We will continue to monitor (11) DVT prophylaxis Current Visit: Yes Status: Acute * On heparin subcutaneous History of Present Illness History of present illness: 73-year-old male who was admitted overnight on 06/02/18 due to acute aspiration and hypoxia. Patient states he was eating a cinnamon twist and remembers choking. He denies significant difficulty swallowing. He otherwise denies any shortness of breath or pain at this time. Past Med Surg Social Fam HX - Past Medical History Medical history: arthritis, atrial fibrillation, CVA, diabetes Psychiatric history: anxiety, schizophrenia - Social History Smoking Status: Unknown if ever smoked Alcohol use: unknown Drug use: unknown - Family History Mother Living Status: Hx Family Endocrine Disorder: Yes Medications and Allergies RX: Benzonatate 100 mg PO QID PRN 02/18/18 [History] RX: Benztropine [Cogentin] 1 mg PO BID 02/18/18 [History] RX: Calcium Carbonate 650 mg PO DAILY 02/18/18 [History] RX: Cholecalciferol (Vitamin D3) [Vitamin D3] 1,000 unit PO DAILY 02/18/18 [History] RX: Loxapine Succinate [Loxapine] 10 mg PO QAM 02/18/18 [History] RX: Loxapine Succinate [Loxapine] 15 mg PO HS 02/18/18 [History] RX: Loxapine Succinate [Loxapine] 25 mg PO QAM 02/18/18 [History] RX: Loxapine Succinate [Loxapine] 50 mg PO HS 02/18/18 [History] RX: Metoprolol Tartrate 100 mg PO BID 02/18/18 [History] RX: Multivitamin [One-Daily Multi-Vitamin] 1 tab PO DAILY 02/18/18 [History] RX: Omeprazole [PriLOSEC] 20 mg PO DAILY 02/18/18 [History] RX: Paliperidone [Paliperidone ER] 9 mg PO DAILY 02/18/18 [History] RX: Pentoxifylline 400 mg PO TID 02/18/18 [History] RX: Potassium Chloride [K-Tab ER] 10 meq PO MOWEFR 02/18/18 [History] RX: Potassium Chloride [K-Tab ER] 20 meq PO SUTUTHSA 02/18/18 [History] RX: Saxagliptin HCl [Onglyza] 2.5 mg PO DAILY 02/18/18 [History] RX: Sennosides/Docusate Sodium [Eq Stool Softener-Stim Lax Tab] 2 tab PO BID PRN 02/18/18 [History] RX: Simvastatin 40 mg PO HS 02/18/18 [History] RX: glipiZIDE [Glucotrol] 2.5 mg PO BID 02/18/18 [History] Benzonatate [Tessalon] 100 mg PO QID PRN 06/02/18 [History] Benztropine [Cogentin] 1 mg PO BID 06/02/18 [History] Cholecalciferol (D-3) [Vitamin D] 2,000 unit PO DAILY 06/02/18 [History] Loxapine Succinate [Loxapine] 10 mg PO QAM 06/02/18 [History] Loxapine Succinate [Loxapine] 15 mg PO HS 06/02/18 [History] Loxapine Succinate [Loxapine] 25 mg PO QAM 06/02/18 [History] Loxapine Succinate [Loxapine] 50 tab PO HS 06/02/18 [History] Metoprolol [Lopressor] 100 mg PO BID 06/02/18 [History] Multivitamin [Daily Multiple Vitamin] 1 each PO DAILY 06/02/18 [History] Omeprazole [PriLOSEC] 20 mg PO DAILY 06/02/18 [History] Paliperidone [Paliperidone ER] 9 mg PO QAM 06/02/18 [History] Potassium Chloride [Klor-Con 10] 10 meq PO MOWEFR 06/02/18 [History] Potassium Chloride [Klor-Con 10] 20 meq PO SUTUTHSA 06/02/18 [History] RX: Calcium Carbonate 650 mg PO DAILY 06/02/18 [History] RX: Pentoxifylline [TRENtal] 400 mg PO TIDWM 06/02/18 [History] Saxagliptin HCl [Onglyza] 2.5 mg PO DAILY 06/02/18 [History] Sennosides/Docusate Sodium [Senna-Docusate Sodium Tablet] 2 each PO BID PRN 06/02/18 [History] Simvastatin [Zocor] 40 mg PO HS 06/02/18 [History] glipiZIDE [Glucotrol] 2.5 mg PO BIDWM 06/02/18 [History] Allergy/AdvReac Type Severity Reaction Status Date / Time ROB Inhibitors Allergy Unconscious Verified 06/03/18 10:24 chlorpromazine Allergy unknown Verified 06/03/18 10:24 [From Thorazine] Erythromycin Base Allergy Hives Verified 06/03/18 10:24 All Systems: The remainder of the systems were reviewed and are negative - Constitutional Constitutional: as per HPI, no fever(s) - EENT Eyes: as per HPI - Cardiovascular Cardiovascular: no chest pain, no dyspnea - Respiratory Respiratory: no cough, no hemoptysis - Gastrointestinal Gastrointestinal: no nausea, no vomiting Physical Examination Vital Signs: Vital Signs, Last 4 Hours Temp Pulse Resp BP Pulse Ox 06/03/18 08:55 97.3 F L 06/03/18 07:37 13 79/65 95 06/03/18 07:00 79 14 96/61 99 06/03/18 06:02 74 14 118/85 97 06/03/18 05:45 12 110/77 98 General appearance: no acute distress Eyes: nonicteric ENT: oropharynx dry Neck: supple Effort: normal Inspection: normal Auscultation: bilateral: clear Cardiovascular: regular rate and rhythm Gastrointestinal: normoactive bowel sounds Integumentary: normal Extremities: no cyanosis Musculoskeletal: no deformities normal mental status mood appropriate, affect normal Ventilator Settings Ventilator Settings: Ventilator Settings, Last 8 Hours Ventilator Tidal Volume 450 Setting Ventilator Tidal Volume 450 Setting Ventilator Tidal Volume 450 Setting Ventilator Tidal Volume 450 Setting Ventilator Tidal Volume 450 Setting Ventilator Tidal Volume 450 Setting Ventilator Tidal Volume 450 Setting Ventilator Tidal Volume 450 Setting Ventilator Tidal Volume 450 Setting Ventilator Tidal Volume 450 Setting Ventilator Tidal Volume 450 Setting Ventilator Tidal Volume 450 Setting Ventilator Tidal Volume 450 Setting Ventilator Respiratory Rate 12 Setting Ventilator Respiratory Rate 12 Setting Ventilator Respiratory Rate 12 Setting Ventilator Respiratory Rate 12 Setting Ventilator Respiratory Rate 12 Setting Ventilator Respiratory Rate 12 Setting Ventilator Respiratory Rate 12 Setting Ventilator Respiratory Rate 12 Setting Ventilator Respiratory Rate 12 Setting Ventilator Respiratory Rate 12 Setting Ventilator Respiratory Rate 12 Setting Ventilator Respiratory Rate 12 Setting Ventilator Respiratory Rate 12 Setting Actual Respiratory Rate 14 Actual Respiratory Rate 14 Actual Respiratory Rate 12 Actual Respiratory Rate 12 Actual Respiratory Rate 12 Actual Respiratory Rate 12 Actual Respiratory Rate 12 Actual Respiratory Rate 12 Actual Respiratory Rate 12 Actual Respiratory Rate 12 Actual Respiratory Rate 12 Positive End Expiratory 5.0 Pressure Positive End Expiratory 5 Pressure Positive End Expiratory 5 Pressure Positive End Expiratory 5 Pressure Positive End Expiratory 5 Pressure Positive End Expiratory 5 Pressure Positive End Expiratory 5 Pressure Positive End Expiratory 5 Pressure Positive End Expiratory 5 Pressure Positive End Expiratory 5 Pressure Positive End Expiratory 5 Pressure Positive End Expiratory 5 Pressure Positive End Expiratory 5 Pressure Peak Inspiratory Airway 16 Pressure Peak Inspiratory Airway 7 Pressure Peak Inspiratory Airway 20 Pressure Peak Inspiratory Airway 19 Pressure Peak Inspiratory Airway 20 Pressure Peak Inspiratory Airway 20 Pressure Peak Inspiratory Airway 20 Pressure Peak Inspiratory Airway 20 Pressure Peak Inspiratory Airway 19 Pressure Peak Inspiratory Airway 20 Pressure Results - Laboratory Findings CBC and BMP: 06/03/18 03:00 06/03/18 14:38 ABG ABG pH 7.39 pH Units (7.32-7.45) 06/03/18 04:54 ABG pCO2 50 mmHg (35-45) H 06/03/18 04:54 ABG pO2 90 mmHg (85-104) 06/03/18 04:54 ABG O2 Saturation 97 % (95-98) 06/03/18 04:54 PT/INR, D-dimer PT 13.2 Seconds (9.4-12.1) H 06/02/18 18:05 Abnormal lab findings: Abnormal lab results WBC 14.1 K/mcL (4.3-11.1) H 06/03/18 03:00 RBC 3.62 M/mcL (4.19-5.50) L 06/03/18 03:00 Hgb 10.7 g/dL (12.9-16.9) L 06/03/18 03:00 Hct 31.8 % (37.5-50.1) L 06/03/18 03:00 Neutrophils # 11.5 K/mcL (1.6-8.9) H 06/03/18 03:00 PT 13.2 Seconds (9.4-12.1) H 06/02/18 18:05 ABG pCO2 50 mmHg (35-45) H 06/03/18 04:54 ABG HCO3 30 mEq/L (21-27) H 06/03/18 04:54 ABG Total CO2 31 mEq/L (20-26) H 06/03/18 04:54 ABG Base Excess 4 mEq/L (-2 to 3) H 06/03/18 04:54 Potassium 3.2 mEq/L (3.5-5.1) L 06/03/18 03:00 Creatinine 1.45 mg/dL (0.70-1.30) H 06/03/18 03:00 Est GFR ( Amer) 58 (> 60) L 06/03/18 03:00 Est GFR (Non-Af Amer) 48 (> 60) L 06/03/18 03:00 Glucose 121 mg/dL (70-105) H 06/03/18 03:00 POC Glucose 124 mg/dL (70-99) H 06/03/18 02:37 Calcium 8.1 mg/dL (8.6-10.3) L 06/03/18 03:00 Alkaline Phosphatase 120 Units/L (34-104) H 06/02/18 18:05 Urine Protein 30 mg/dL (Neg-Trace) H 06/02/18 18:35 Urine Glucose (UA) 500 mg/dL (Normal) H 06/02/18 18:35 Urine Blood Small (Negative) H 06/02/18 18:35 Urine Microscopic RBC 3-5 per hpf (0-3) H 06/02/18 18:35 - Microbiology Findings Microbiology Findings: Microbiology, Last 48 Hours 06/02/18 18:24 Blood Culture - Preliminary Peripheral Venipuncture Culture is incubating and being continuously monitored for growth. Final report to follow. 06/02/18 18:19 Blood Culture - Preliminary Peripheral Venipuncture Culture is incubating and being continuously monitored for growth. Final report to follow. - Clinical Findings Intake & Output: Intake & Output 06/02/18 06/03/18 06/03/18 23:59 07:59 15:59 Intake Total 2741.2 / 2741.2 895.0 / 895.0 Output Total 2200 / 2200 200 / 200 295 / 295 Balance 541.2 / 541.2 695.0 / 695.0 -295 / -295 Weight 82.5 kg 84 kg Consult Discharge Plan - Plan [facility]errals: [facility]Primary Care Provider[facility] - <Marcel Gong - Last Filed: 06/04/18 06:10> Date of Encounter: 06/04/18 All Systems: The remainder of the systems were reviewed and are negative Physical Examination Vital Signs: Vital Signs, Last 4 Hours Temp Pulse Resp BP Pulse Ox 06/04/18 03:26 99.6 F 95 16 127/72 99 Results - Laboratory Findings CBC and BMP: 06/03/18 03:00 06/03/18 14:38 ABG ABG pH 7.39 pH Units (7.32-7.45) 06/03/18 04:54 ABG pCO2 50 mmHg (35-45) H 06/03/18 04:54 ABG pO2 90 mmHg (85-104) 06/03/18 04:54 ABG O2 Saturation 97 % (95-98) 06/03/18 04:54 PT/INR, D-dimer PT 13.2 Seconds (9.4-12.1) H 06/02/18 18:05 Abnormal lab findings: Abnormal lab results WBC 14.1 K/mcL (4.3-11.1) H 06/03/18 03:00 RBC 3.62 M/mcL (4.19-5.50) L 06/03/18 03:00 Hgb 10.7 g/dL (12.9-16.9) L 06/03/18 03:00 Hct 31.8 % (37.5-50.1) L 06/03/18 03:00 Neutrophils # 11.5 K/mcL (1.6-8.9) H 06/03/18 03:00 PT 13.2 Seconds (9.4-12.1) H 06/02/18 18:05 ABG pCO2 50 mmHg (35-45) H 06/03/18 04:54 ABG HCO3 30 mEq/L (21-27) H 06/03/18 04:54 ABG Total CO2 31 mEq/L (20-26) H 06/03/18 04:54 ABG Base Excess 4 mEq/L (-2 to 3) H 06/03/18 04:54 Potassium 3.4 mEq/L (3.5-5.1) L 06/03/18 14:38 Creatinine 1.45 mg/dL (0.70-1.30) H 06/03/18 03:00 Est GFR ( Amer) 58 (> 60) L 06/03/18 03:00 Est GFR (Non-Af Amer) 48 (> 60) L 06/03/18 03:00 Glucose 121 mg/dL (70-105) H 06/03/18 03:00 POC Glucose 123 mg/dL (70-99) H 06/03/18 18:20 Calcium 8.1 mg/dL (8.6-10.3) L 06/03/18 03:00 Alkaline Phosphatase 120 Units/L (34-104) H 06/02/18 18:05 Urine Protein 30 mg/dL (Neg-Trace) H 06/02/18 18:35 Urine Glucose (UA) 500 mg/dL (Normal) H 06/02/18 18:35 Urine Blood Small (Negative) H 06/02/18 18:35 Urine Microscopic RBC 3-5 per hpf (0-3) H 06/02/18 18:35 - Microbiology Findings Microbiology Findings: Microbiology, Last 48 Hours 06/03/18 Unknown Respiratory Culture - Preliminary Right Lower Lobe Lung 06/02/18 18:24 Blood Culture - Preliminary Peripheral Venipuncture Culture is incubating and being continuously monitored for growth. Final report to follow. 06/02/18 18:19 Blood Culture - Preliminary Peripheral Venipuncture Culture is incubating and being continuously monitored for growth. Final report to follow. - Clinical Findings Intake & Output: Intake & Output 06/03/18 06/03/18 06/04/18 15:59 23:59 07:59 Intake Total 140.8 / 140.8 1000 / 1000 100 / 100 Output Total 395 / 395 600 / 600 Balance -254.2 / -254.2 400 / 400 100 / 100 - Attending Attestation This note was done on 06/04/2018, however patient was seen and examined and discussed the case with the resident on 06/03/2018 I examined this patient and my medical decision-making was reviewed with the Resident Physician. I agree with the documented findings, disposition and treatment plan as described except to the extent set forth below. Patient seen and examined. Labs, radiology, chart personally reviewed. 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 Pulmonary: Acceptable oxygenation and ventilation and overall acceptable then setting and as soon as consent was obtained for bronchoscopy which was done without any complications, patient was successfully extubated after that Cardiovascular: stable GI: Nutrition per dietary and GI prophylaxis per routine. Patient to be evaluated for any aspiration. Heme: DVT prophylaxis per routine ID: Continue antibiotics and plan to de-escalation Renal; urine out put and renal funtion reviewed Endorcine: blood glucose is monitored Lines: all lines checked and no evidence of infections Skin: skin care to prevent pressure ulcers per nursing routine care After patient was extubated successfully was transferred to the floor and social service consultation.
[2018-06-03] MEDS ORDERED: 0.9 % Sodium Chloride 500 ML IVC ONE (17:17)
[2018-06-03] MEDS ORDERED: *HR* Metoprolol 5 MG/5 ML VIAL IVP ONE (17:46)
[2018-06-03] MEDS ORDERED: LOXAPINE SUCCINATE 5 MG PO SCH (21:00)
[2018-06-03] MEDS ORDERED: Metoprolol 100 MG TABLET PO SCH ×3 (21:00→22:15)
[2018-06-03] MEDS ORDERED: LOXAPINE SUCCINATE 25 MG PO SCH ×2 (21:00)
[2018-06-03] MEDS ORDERED: D5% in Water 1,000 ML IVC PRN (21:57)
[2018-06-03] MEDS ORDERED: Dextrose Gel 15 GM/37.5 ML TUBE PO PRN ×2 (21:57)
[2018-06-04] MEDS: Insulin LISPRO 300 UNITS/3 ML VIAL SQ SCH ×3 (00:07→20:46)
[2018-06-04] MEDS: Ampicillin/Sulbactam 1,500 MG in 0.9 % Sodium Chloride Mini Bag 100 ML IVPB SCH ×3 (06:10→17:37)
[2018-06-04] MEDS: *HR* Heparin 5,000 UNIT/ML VIAL SQ SCH ×2 (06:11→17:39)
[2018-06-04 06:29] LABS: Basophils # 0.1 K/mcL (0.0-0.2); Basophils % 0.5 %; Eosinophils # 0.1 K/mcL (0.0-0.6); Eosinophils % 0.7 %; Hematocrit 31.3 % (37.5-50.1); Hemoglobin 10.2 g/dL (12.9-16.9); Immature Granulocytes % 0.2 % (0-4); Lymphocytes # 1.3 K/mcL (0.6-4.6); Lymphocytes % 13.1 %; Mean Corpuscular HGB Conc 32.6 g/dL (31.6-35.5); Mean Corpuscular Hemoglobin 29.1 pg (28.0-33.3); Mean Corpuscular Volume 89.4 fL (83.0-100.0); Mean Platelet Volume 10.2 fL (9.4-12.4); Monocytes # 0.7 K/mcL (0.0-1.3); Monocytes % 7.3 %; Neutrophils # 7.9 K/mcL (1.6-8.9); Platelet Count 282 K/mcL (140-400); Red Cell Distribution Width 13.4 % (11.5-14.5); Segmented Neutrophils % 78.2 %
[2018-06-04] MEDS ORDERED: Pantoprazole 40 MG VIAL IVP SCH (06:30)
[2018-06-04 06:49] LABS: Calcium 8.4 mg/dL (8.6-10.3); Magnesium 1.8 mg/dL (1.6-2.6); Potassium 3.5 mEq/L (3.5-5.1)
[2018-06-04] MEDS ORDERED: LOXAPINE SUCCINATE 5 MG PO SCH (09:00)
[2018-06-04] MEDS ORDERED: LOXAPINE SUCCINATE 25 MG PO SCH (09:00)
[2018-06-04] MEDS ORDERED: *HR* Dextrose 50 % in Water (Syg) 50 ML SYRINGE IVP PRN (09:07)
--- NOTE | 2018-06-04 10:20 | Internal Med Progress Note ---
Hospitalist Progress Note - Encounter Date of Encounter: 06/04/18 Time of Encounter: 10:18 - Subjective Interval History: Patient seen and examined this morning at bedside. No acute overnight events. Awake and alert. Mentions breathing much better. Denies any chest pain abdominal pain or difficulty passing stool. Has a Webb catheter in place. - Exam Vitals: Temp Pulse Resp BP Pulse Ox 99.9 F H 98 17 137/78 96 06/04/18 07:01 06/04/18 07:01 06/04/18 07:01 06/04/18 07:01 06/04/18 07:01 Exam: General: In no acute distress. Respiratory exam: Transmitted secretory sounds diffusely. no accessory muscle use Cardiovascular exam: RRR, +S1, +S2. no murmur, gallop, rubs. GI/Abdominal exam: Non-tender, Non-distended, normal bowel sounds, soft, no peritoneal signs. Extremities exam: full ROM, no pedal edema, warm, pulses palpable in b/l lower extremities. no calf tenderness Neurological exam: CN II-XII intact, AO X3, no focal deficits. Skin exam: No skin rash - Summary of Assessment and Plan Summary of Assessment and Plan: Severe sepsis, Acute respiratory failure with hypoxia and hypercapnia - likely secondary to aspiration pneumonia - now extubated. Clinically improved - Blood culture NGTD. S/p bronchoscopy with removal of foreign body, thick secretion and BAL - c/w Unasyn. remove webb. Hypokalemia - resolved Aspiration of food - s/p bronchoscopy as above - started on diet per speech evaluation Diabetes mellitus - c/w SSI and Accu-Chek HTN - c/w metoprolol. Atrial fibrillation - c/w lopressor 100 BID - not on AC due to falls hsitory Stage III chronic kidney disease - stable - Monitor renal function for now DVT prophylaxis - heparin subcutaneous - Time Spent with Patient Total time spent is greater than 50% in coordination of care (as documented) at patient's floor/unit and/or counseling patient: Internal Medicine: Result - Labs CBC & Chem 7: 06/04/18 04:00 06/04/18 04:00 Labs: Short CBC 06/04/18 Range/Units 04:00 WBC 10.1 (4.3-11.1) K/mcL Hgb 10.2 L (12.9-16.9) g/dL Hct 31.3 L (37.5-50.1) % Plt Count 282 (140-400) K/mcL Neutrophils # 7.9 (1.6-8.9) K/mcL BMP 06/03/18 06/04/18 14:38 04:00 Sodium 141 Potassium 3.4 L 3.5 Chloride 105 Carbon Dioxide 27 BUN 16 Creatinine 1.45 H Glucose 105 Calcium 8.4 L - ABG Interpretation ABG results: ABG ABG pH 7.39 pH Units (7.32-7.45) 06/03/18 04:54 ABG pCO2 50 mmHg (35-45) H 06/03/18 04:54 ABG pO2 90 mmHg (85-104) 06/03/18 04:54 ABG O2 Saturation 97 % (95-98) 06/03/18 04:54 PT/INR, D-dimer PT 13.2 Seconds (9.4-12.1) H 06/02/18 18:05 - Impressions Impressions Chest X-Ray 06/02/18 18:05 IMPRESSION: Endotracheal tube tip is in the expected position, superimposed mid trachea. Pulmonary vascular congestion, concerning for mild pulmonary edema. Elevation right hemidiaphragm with adjacent airspace disease, likely atelectasis. D/ / Charlie Camargo MD / Charlie Camargo MD Interpreting Provider: Charlie Camargo MD X-Ray 06/02/18 18:05 IMPRESSION: 1. Tip of the nasogastric tube projects over the distal stomach. 2. Marked gaseous distention of the stomach. D/ / 06/02/2018 18:23:04 Dong Rios MD / megan Interpreting Provider: Dong Rios MD Chest CT 06/02/18 18:08 IMPRESSION: Areas of consolidation to bilateral lower lobes, right middle lobe and to a much lesser extent right upper lobe which may relate to aspiration pneumonitis, multifocal infiltrates and/or atelectasis. Clinical correlation and continued follow-up suggested. Prominent precarinal lymph node, nonspecific but possibly reactive. Atherosclerosis to include coronary artery disease. D/ / 06/02/2018 19:04:27 Renzo Chan MD / megan Interpreting Provider: Renzo Chan MD Head CT 06/02/18 18:08 IMPRESSION: No acute intracranial abnormality. Mild age-related cerebral volume loss and moderate chronic microvascular ischemic disease. D/ / Daniel Luke / Daniel Luke Interpreting Provider: Daniel Luke Chest X-Ray 06/03/18 06:09 IMPRESSION: Unchanged elevation of the right hemidiaphragm and bibasilar atelectasis and/or consolidation. D/ / Andrei Farris MD / Andrei Farris MD Interpreting Provider: Andrei Farris MD Consult Discharge Plan - Plan [facility]errals: [facility] [Primary Care Provider] -
[2018-06-04] MEDS: Metoprolol 100 MG TABLET PO SCH ×2 (10:48→20:44)
[2018-06-04] MEDS ORDERED: Ipratropium/Albuterol Neb 3 ML IH PRN (11:24)
[2018-06-04] MEDS: Acetaminophen 325 MG TABLET PO PRN ×2 (13:49→20:44)
[2018-06-04] MEDS: LOXAPINE SUCCINATE 25 MG PO SCH ×2 (20:40→22:44)
[2018-06-04] MEDS ORDERED: NON-FORMULARY MEDICATION 1 EACH EACH PO SCH (22:00)
[2018-06-05] MEDS: Ampicillin/Sulbactam 1,500 MG in 0.9 % Sodium Chloride Mini Bag 100 ML IVPB SCH ×4 (00:04→18:05)
[2018-06-05] MEDS: Acetaminophen 325 MG TABLET PO PRN (05:14)
[2018-06-05] MEDS: Metoprolol 100 MG TABLET PO SCH ×2 (05:15→20:06)
[2018-06-05] MEDS: *HR* Heparin 5,000 UNIT/ML VIAL SQ SCH ×2 (05:15→18:05)
[2018-06-05 05:41] LABS: Basophils # 0.1 K/mcL (0.0-0.2); Basophils % 0.6 %; Eosinophils # 0.2 K/mcL (0.0-0.6); Eosinophils % 1.8 %; Hematocrit 33.2 % (37.5-50.1); Hemoglobin 11.1 g/dL (12.9-16.9); Immature Granulocytes % 0.2 % (0-4); Lymphocytes # 1.4 K/mcL (0.6-4.6); Lymphocytes % 16.3 %; Mean Corpuscular HGB Conc 33.4 g/dL (31.6-35.5); Mean Corpuscular Hemoglobin 29.6 pg (28.0-33.3); Mean Corpuscular Volume 88.5 fL (83.0-100.0); Mean Platelet Volume 10.3 fL (9.4-12.4); Monocytes # 0.9 K/mcL (0.0-1.3); Monocytes % 10.3 %; Neutrophils # 6.1 K/mcL (1.6-8.9); Platelet Count 293 K/mcL (140-400); Red Blood Count 3.75 M/mcL (4.19-5.50); Red Cell Distribution Width 13.3 % (11.5-14.5); Segmented Neutrophils % 70.8 %
[2018-06-05 05:45] LABS: BUN/Creatinine Ratio 12 (6-26); Blood Urea Nitrogen 16 mg/dL (8-23); Calcium 8.8 mg/dL (8.6-10.3); Carbon Dioxide 29 mEq/L (23-29); Chloride 103 mEq/L (98-107); Glucose 115 mg/dL (70-105); Osmolality,Calculated 294 (280-300); Potassium 3.2 mEq/L (3.5-5.1); Sodium 141 mEq/L (136-145); eGFR For Non-African Americans 52 (> 60)
[2018-06-05] MEDS: LOXAPINE SUCCINATE 25 MG PO SCH ×2 (08:27→20:06)
--- NOTE | 2018-06-05 13:36 | Internal Med Progress Note ---
Hospitalist Progress Note - Encounter Date of Encounter: 06/05/18 Time of Encounter: 09:35 - Subjective Interval History: Patient seen and examined this morning at bedside. No acute overnight events. Breathing much improved. Denies any chest pain bowel or bladder complaints. - Exam Vitals: Temp Pulse Resp BP Pulse Ox 97.8 F 83 16 153/87 96 06/05/18 10:53 06/05/18 10:53 06/05/18 10:53 06/05/18 10:53 06/05/18 10:53 Exam: General: In no acute distress. Respiratory exam: CTAB, mild secretory sound no accessory muscle use Cardiovascular exam: RRR, +S1, +S2. no murmur, gallop, rubs. GI/Abdominal exam: Non-tender, Non-distended, normal bowel sounds, soft, no peritoneal signs. Extremities exam: full ROM, no pedal edema, warm, no calf tenderness Neurological exam: CN II-XII intact, AO X3, no focal deficits. Skin exam: No skin rash - Summary of Assessment and Plan Summary of Assessment and Plan: Severe sepsis, Acute respiratory failure with hypoxia and hypercapnia - sepsis resolved - likely secondary to aspiration pneumonia - now extubated. Clinically improved - Blood culture NGTD. S/p bronchoscopy with removal of foreign body, thick secretion and BAL. BAL with normal respiratory miguel - c/w Unasyn for now. Will switch to PO on discharge Aspiration of food - s/p bronchoscopy as above - started on diet per speech evaluation Diabetes mellitus - c/w SSI and Accu-Chek HTN - c/w metoprolol. Atrial fibrillation - c/w lopressor 100 BID - not on AC due to falls hsitory Stage III chronic kidney disease - stable - Monitor renal function for now DVT prophylaxis - heparin subcutaneous PT recommended SNF placement. Medically stable to be discharged once placement available. - Time Spent with Patient Total time spent is greater than 50% in coordination of care (as documented) at patient's floor/unit and/or counseling patient: Internal Medicine: Result - Labs CBC & Chem 7: 06/05/18 04:44 06/05/18 04:44 Labs: Short CBC 06/05/18 Range/Units 04:44 WBC 8.7 (4.3-11.1) K/mcL Hgb 11.1 L (12.9-16.9) g/dL Hct 33.2 L (37.5-50.1) % Plt Count 293 (140-400) K/mcL Neutrophils # 6.1 (1.6-8.9) K/mcL BMP 06/05/18 04:44 Sodium 141 Potassium 3.2 L Chloride 103 Carbon Dioxide 29 BUN 16 Creatinine 1.34 H Glucose 115 H Calcium 8.8 - ABG Interpretation ABG results: ABG ABG pH 7.39 pH Units (7.32-7.45) 06/03/18 04:54 ABG pCO2 50 mmHg (35-45) H 06/03/18 04:54 ABG pO2 90 mmHg (85-104) 06/03/18 04:54 ABG O2 Saturation 97 % (95-98) 06/03/18 04:54 PT/INR, D-dimer PT 13.2 Seconds (9.4-12.1) H 06/02/18 18:05 Consult Discharge Plan - Plan Referrals: [facility] [Primary Care Provider] -
[2018-06-06] MEDS: Ampicillin/Sulbactam 1,500 MG in 0.9 % Sodium Chloride Mini Bag 100 ML IVPB SCH ×2 (00:42→05:37)
[2018-06-06] MEDS: *HR* Heparin 5,000 UNIT/ML VIAL SQ SCH (05:38)
[2018-06-06] MEDS: Metoprolol 100 MG TABLET PO SCH (08:39)
[2018-06-06] MEDS: LOXAPINE SUCCINATE 25 MG PO SCH (08:40)
--- NOTE | 2018-06-06 10:54 | Discharge Summary ---
- NOTES TO OUTPATIENT PROVIDER Notes to Outpatient Provider: Patient will finish course of antibiotics for 8 days Orders not resulted at time of discharge: Pending orders 06/02/18 18:05 ECG 12 lead ECG [ECG] Stat 06/02/18 18:24 Culture,Blood [BC] Stat Date of Encounter: 06/06/18 Time of Encounter: 10:49 - Discharge Diagnosis (1) Afib Priority: Secondary Status: Acute Qualifiers: Atrial fibrillation type: chronic Qualified Code(s): I48.2 - Chronic atrial fibrillation (2) Aspiration of food Priority: Primary Status: Acute Qualifiers: Encounter type: initial encounter Qualified Code(s): T17.920A - Food in respiratory tract, part unspecified causing asphyxiation, initial encounter (3) Aspiration pneumonia Priority: Primary Status: Acute Qualifiers: Aspiration pneumonia type: due to regurgitated food Laterality: left Lung location: unspecified part of lung Qualified Code(s): J69.0 - Pneumonitis due to inhalation of food and vomit (4) Lactic acidosis Priority: Primary Status: Acute (5) Leukocytosis Priority: Primary Status: Acute Qualifiers: Leukocytosis type: unspecified Qualified Code(s): D72.829 - Elevated white blood cell count, unspecified (6) Diabetes Priority: Secondary Status: Chronic Qualifiers: Diabetes mellitus type: type 2 Diabetes mellitus nursing home insulin use: without nursing home use Diabetes mellitus complication status: with kidney complications Diabetes mellitus complication detail: with chronic kidney disease Chronic kidney disease stage: stage 3 (moderate) Qualified Code(s): E11.22 - Type 2 diabetes mellitus with diabetic chronic kidney disease; N18.3 - Chronic kidney disease, stage 3 (moderate) (7) HTN (hypertension) Priority: Secondary Status: Chronic Qualifiers: Hypertension type: essential hypertension Qualified Code(s): I10 - Essential (primary) hypertension (8) Stage III chronic kidney disease Priority: Secondary Status: Chronic Hospital course: Mr. Craig is a 73 year old male with PMHx of AFib, diastolic FHF, CAD, CVA, DM, HTN, CKD3, schizophrenia was admitted after he was found unresponsive after choking. He was intubated. CT showed consolidation and he was started on treatment for sepsis from aspiration pneumonia. Bronchoscopy was done for respiratory track foreign body, BAL was performed. He was continued on unasyn. Blood culture and BAL did not grow any organism. His respiratory status improved over 5 days of hospital stay. He was stable to be discharge to go back [facility] to finish 3 more days of antibiotics. Discharge discussed with: patient, nurse - Time Spent with Patient Total time spent providing and/or coordinating discharge services: Time spent: Greater than 30 minutes (40) - Discharge Medications Prescriptions: New Amoxicillin/Clavulanate [Augmentin] 875 mg PO BIDWM 3 Days #6 tablet Continue Saxagliptin HCl [Onglyza] 2.5 mg PO DAILY Potassium Chloride [K-Tab ER] 10 meq PO MOWEFR Potassium Chloride [K-Tab ER] 20 meq PO SUTUTHSA Pentoxifylline 400 mg PO TID Paliperidone [Paliperidone ER] 9 mg PO DAILY Omeprazole [PriLOSEC] 20 mg PO DAILY Multivitamin [One-Daily Multi-Vitamin] 1 tab PO DAILY Metoprolol Tartrate 100 mg PO BID Loxapine Succinate [Loxapine] 10 mg PO QAM Loxapine Succinate [Loxapine] 25 mg PO QAM Loxapine Succinate [Loxapine] 15 mg PO HS Loxapine Succinate [Loxapine] 50 mg PO HS Benzonatate 100 mg PO QID PRN PRN Reason: Cough Sennosides/Docusate Sodium [Eq Stool Softener-Stim Lax Tab] 2 tab PO BID PRN PRN Reason: Constipation glipiZIDE [Glucotrol] 2.5 mg PO BID Cholecalciferol (Vitamin D3) [Vitamin D3] 1,000 unit PO DAILY Calcium Carbonate 650 mg PO DAILY Benztropine [Cogentin] 1 mg PO BID Simvastatin 40 mg PO HS Potassium Chloride [Klor-Con 10] 10 meq PO MOWEFR Multivitamin [Daily Multiple Vitamin] 1 each PO DAILY Cholecalciferol (D-3) [Vitamin D] 2,000 unit PO DAILY Calcium Carbonate 650 mg PO DAILY Omeprazole [PriLOSEC] 20 mg PO DAILY Benztropine [Cogentin] 1 mg PO BID Paliperidone [Paliperidone ER] 9 mg PO QAM Loxapine Succinate [Loxapine] 15 mg PO HS Loxapine Succinate [Loxapine] 10 mg PO QAM Loxapine Succinate [Loxapine] 25 mg PO QAM Loxapine Succinate [Loxapine] 50 tab PO HS Saxagliptin HCl [Onglyza] 2.5 mg PO DAILY glipiZIDE [Glucotrol] 2.5 mg PO BIDWM Benzonatate [Tessalon] 100 mg PO QID PRN PRN Reason: Cough Simvastatin [Zocor] 40 mg PO HS Sennosides/Docusate Sodium [Senna-Docusate Sodium Tablet] 2 each PO BID PRN PRN Reason: Constipation Pentoxifylline [TRENtal] 400 mg PO TIDWM Metoprolol [Lopressor] 100 mg PO BID Potassium Chloride [Klor-Con 10] 20 meq PO [facility] Home Medications: Benzonatate 100 mg PO QID PRN 02/18/18 [History] Benztropine [Cogentin] 1 mg PO BID 02/18/18 [History] Calcium Carbonate 650 mg PO DAILY 02/18/18 [History] Cholecalciferol (Vitamin D3) [Vitamin D3] 1,000 unit PO DAILY 02/18/18 [History] Loxapine Succinate [Loxapine] 10 mg PO QAM 02/18/18 [History] Loxapine Succinate [Loxapine] 15 mg PO HS 02/18/18 [History] Loxapine Succinate [Loxapine] 25 mg PO QAM 02/18/18 [History] Loxapine Succinate [Loxapine] 50 mg PO HS 02/18/18 [History] Metoprolol Tartrate 100 mg PO BID 02/18/18 [History] Multivitamin [One-Daily Multi-Vitamin] 1 tab PO DAILY 02/18/18 [History] Omeprazole [PriLOSEC] 20 mg PO DAILY 02/18/18 [History] Paliperidone [Paliperidone ER] 9 mg PO DAILY 02/18/18 [History] Pentoxifylline 400 mg PO TID 02/18/18 [History] Potassium Chloride [K-Tab ER] 10 meq PO MOWEFR 02/18/18 [History] Potassium Chloride [K-Tab ER] 20 meq PO SUTUTHSA 02/18/18 [History] Saxagliptin HCl [Onglyza] 2.5 mg PO DAILY 02/18/18 [History] Sennosides/Docusate Sodium [Eq Stool Softener-Stim Lax Tab] 2 tab PO BID PRN 02/18/18 [History] Simvastatin 40 mg PO HS 02/18/18 [History] glipiZIDE [Glucotrol] 2.5 mg PO BID 02/18/18 [History] Benzonatate [Tessalon] 100 mg PO QID PRN 06/02/18 [History] Benztropine [Cogentin] 1 mg PO BID 06/02/18 [History] Calcium Carbonate 650 mg PO DAILY 06/02/18 [History] Cholecalciferol (D-3) [Vitamin D] 2,000 unit PO DAILY 06/02/18 [History] Loxapine Succinate [Loxapine] 10 mg PO QAM 06/02/18 [History] Loxapine Succinate [Loxapine] 15 mg PO HS 06/02/18 [History] Loxapine Succinate [Loxapine] 25 mg PO QAM 06/02/18 [History] Loxapine Succinate [Loxapine] 50 tab PO HS 06/02/18 [History] Metoprolol [Lopressor] 100 mg PO BID 06/02/18 [History] Multivitamin [Daily Multiple Vitamin] 1 each PO DAILY 06/02/18 [History] Omeprazole [PriLOSEC] 20 mg PO DAILY 06/02/18 [History] Paliperidone [Paliperidone ER] 9 mg PO QAM 06/02/18 [History] Pentoxifylline [TRENtal] 400 mg PO TIDWM 06/02/18 [History] Potassium Chloride [Klor-Con 10] 10 meq PO MOWEFR 06/02/18 [History] Potassium Chloride [Klor-Con 10] 20 meq PO SUTUTHSA 06/02/18 [History] Saxagliptin HCl [Onglyza] 2.5 mg PO DAILY 06/02/18 [History] Sennosides/Docusate Sodium [Senna-Docusate Sodium Tablet] 2 each PO BID PRN 06/02/18 [History] Simvastatin [Zocor] 40 mg PO HS 06/02/18 [History] glipiZIDE [Glucotrol] 2.5 mg PO BIDWM 06/02/18 [History] Amoxicillin/Clavulanate [Augmentin] 875 mg PO BIDWM 3 Days #6 tablet 06/06/18 [Rx] Allergies/Adverse Reactions: Allergy/AdvReac Type Severity Reaction Status Date / Time ROB Inhibitors Allergy Unconscious Verified 06/03/18 10:24 chlorpromazine Allergy unknown Verified 06/03/18 10:24 [From Thorazine] Erythromycin Base Allergy Hives Verified 06/03/18 10:24 Date of admission: 06/02/18 21:58 [facility] Consults: 06/02/18 23:07 Consult to Pulmonology [CONS] Routine Consulting Provider: [facility] Reason for Consult: aspiration, ARDS Call Completed: Yes 06/03/18 07:01 Consult to Frame Nailer [CONS] Routine Reason for SW Consult: no p.o.a. lives in [facility] on [facility]. next of kin kari craig [phone] nephew 06/03/18 12:56 Consult to Nurse Navigator [CONS] Routine Comment: tx empirically for aspiration pneumonia 06/03/18 15:10 Consult to Speech Therapy [CONS] Routine Comment: Evaluate, develop and implement POC Reason for Consult: likely aspiration pneumonia, dysphagia Call Completed: No 06/04/18 10:17 Consult to Occupational Therapy [CONS] Routine Comment: Evaluate, develop and implement POC Reason for Consult: improve mobility, discharge planning Does patient have active BEDREST order?: No Is patient medically & hemodynamically stable?: Yes Consult to Physical Therapy [CONS] Routine Comment: Evaluate, develop and implement POC Reason for Consult: improve mobility, discharge planning Does patient have active BEDREST order?: No Is patient medically & hemodynamically stable?: Yes Discharging clinician: Harvey Rios - Constitutional Vitals: Temp Pulse Resp BP Pulse Ox 98.2 F 84 20 142/92 97 06/06/18 06:49 06/06/18 06:49 06/06/18 06:49 06/06/18 06:49 06/06/18 06:49 General appearance: Present: no acute distress Exam: General: In no acute distress. Respiratory exam: CTAB, mild secretory sound no accessory muscle use Cardiovascular exam: RRR, +S1, +S2. no murmur, gallop, rubs. GI/Abdominal exam: Non-tender, Non-distended, normal bowel sounds, soft, no peritoneal signs. Extremities exam: full ROM, no pedal edema, warm, no calf tenderness Neurological exam: CN II-XII intact, AO X3, no focal deficits. Skin exam: No skin rash - Patient Status Disposition: Transfer SNF Condition: Serious - Discharge Instructions Follow Up With: [facility] Care Provider[facility] - (WILL FOLLOW UP WITH [facility] PCP) - Diet and Activity Activity: increase activity as tolerated
--- NOTE | 2018-06-06 10:55 | Physician Discharge Referral ---
ExtendedCare Referral Info Institutional Level of Care: Skilled - Diagnosis (1) Afib Status: Acute (2) Aspiration of food Status: Acute (3) Aspiration pneumonia Status: Acute (4) Lactic acidosis Status: Acute (5) Leukocytosis Status: Acute (6) Diabetes Status: Chronic (7) HTN (hypertension) Status: Chronic (8) Stage III chronic kidney disease Status: Chronic - Transfer Medications Prescriptions: Amoxicillin/Clavulanate [Augmentin] 875 mg PO BIDWM 3 Days #6 tablet Home Medications: Benzonatate 100 mg PO QID PRN 02/18/18 [History] Benztropine [Cogentin] 1 mg PO BID 02/18/18 [History] Calcium Carbonate 650 mg PO DAILY 02/18/18 [History] Cholecalciferol (Vitamin D3) [Vitamin D3] 1,000 unit PO DAILY 02/18/18 [History] Loxapine Succinate [Loxapine] 10 mg PO QAM 02/18/18 [History] Loxapine Succinate [Loxapine] 15 mg PO HS 02/18/18 [History] Loxapine Succinate [Loxapine] 25 mg PO QAM 02/18/18 [History] Loxapine Succinate [Loxapine] 50 mg PO HS 02/18/18 [History] Metoprolol Tartrate 100 mg PO BID 02/18/18 [History] Multivitamin [One-Daily Multi-Vitamin] 1 tab PO DAILY 02/18/18 [History] Omeprazole [PriLOSEC] 20 mg PO DAILY 02/18/18 [History] Paliperidone [Paliperidone ER] 9 mg PO DAILY 02/18/18 [History] Pentoxifylline 400 mg PO TID 02/18/18 [History] Potassium Chloride [K-Tab ER] 10 meq PO MOWEFR 02/18/18 [History] Potassium Chloride [K-Tab ER] 20 meq PO SUTUTHSA 02/18/18 [History] Saxagliptin HCl [Onglyza] 2.5 mg PO DAILY 02/18/18 [History] Sennosides/Docusate Sodium [Eq Stool Softener-Stim Lax Tab] 2 tab PO BID PRN 02/18/18 [History] Simvastatin 40 mg PO HS 02/18/18 [History] glipiZIDE [Glucotrol] 2.5 mg PO BID 02/18/18 [History] Benzonatate [Tessalon] 100 mg PO QID PRN 06/02/18 [History] Benztropine [Cogentin] 1 mg PO BID 06/02/18 [History] Calcium Carbonate 650 mg PO DAILY 06/02/18 [History] Cholecalciferol (D-3) [Vitamin D] 2,000 unit PO DAILY 06/02/18 [History] Loxapine Succinate [Loxapine] 10 mg PO QAM 06/02/18 [History] Loxapine Succinate [Loxapine] 15 mg PO HS 06/02/18 [History] Loxapine Succinate [Loxapine] 25 mg PO QAM 06/02/18 [History] Loxapine Succinate [Loxapine] 50 tab PO HS 06/02/18 [History] Metoprolol [Lopressor] 100 mg PO BID 06/02/18 [History] Multivitamin [Daily Multiple Vitamin] 1 each PO DAILY 06/02/18 [History] Omeprazole [PriLOSEC] 20 mg PO DAILY 06/02/18 [History] Paliperidone [Paliperidone ER] 9 mg PO QAM 06/02/18 [History] Pentoxifylline [TRENtal] 400 mg PO TIDWM 06/02/18 [History] Potassium Chloride [Klor-Con 10] 10 meq PO MOWEFR 06/02/18 [History] Potassium Chloride [Klor-Con 10] 20 meq PO SUTUTHSA 06/02/18 [History] Saxagliptin HCl [Onglyza] 2.5 mg PO DAILY 06/02/18 [History] Sennosides/Docusate Sodium [Senna-Docusate Sodium Tablet] 2 each PO BID PRN 06/02/18 [History] Simvastatin [Zocor] 40 mg PO HS 06/02/18 [History] glipiZIDE [Glucotrol] 2.5 mg PO BIDWM 06/02/18 [History] Amoxicillin/Clavulanate [Augmentin] 875 mg PO BIDWM 3 Days #6 tablet 06/06/18 [R x] Allergies/Adverse Reactions: Allergy/AdvReac Type Severity Reaction Status Date / Time ROB Inhibitors Allergy Unconscious Verified 06/03/18 10:24 chlorpromazine Allergy unknown Verified 06/03/18 10:24 [From Thorazine] Erythromycin Base Allergy Hives Verified 06/03/18 10:24 - Respiratory Orders Smoking Cessation: Smoking cessation has been advised. For more information, call the [place] Tobacco Quit Line at 1-215-ANZX-NOW. CERTIFICATION: I certify that the transfer of the above named patient to an Extended Care Facility is necessary for the continuing treatment of the diagnosis listed. The above information is true and accurate reflection of patient's current condition. Confidential - Redisclosure prohibited without a patient's written consent.
[2018-06-06 10:59] VITALS: BP 122/73
== END 2018-06-06 12:03 | DRG 871 ==
LOC: EMEROOARM 17:52 → SUATTDRO 21:58 → MERGE 21:58 → ICNU 21:58 → 2ANU 06-03 22:10
PROVIDERS: ADMIT Internal Medicine; ATTEND Internal Medicine
PROC: ENDOBRF (2018-06-03 09:00)